=== PATIENT | male | born 1945 | race Caucasian/White ===

== ENCOUNTER 2017-09-01 10:57 | Emergency (ER) | payer MEDICARE ==
[2017-09-01] MEDS ORDERED: Doxycycline 100 MG Cap PO ONE (11:24)
--- NOTE | 2017-09-01 11:30 | EDM.PDOC ---
ED HPI GENERAL MEDICAL PROBLEM - General Chief Complaint: Skin Complaint Stated Complaint: SKIN COMPLAINT/SORES ON ARMS AND LEGS Time Seen by Provider: 09/01/17 11:15 Source of Information: Reports: Patient History Limitations: Reports: No Limitations - History of Present Illness INITIAL COMMENTS - FREE TEXT/NARRATIVE: Patient 71-year-old male presents ED complaining of multiple sores to his legs and arms. The sores of been present for the past few months and has been evaluated by airborne weapons technical manager with prescription for dicloxacillin provided. 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 States the dicloxacillin almost completely resolve the sores to his legs. States he is also placed on prednisone. Was seen by the airborne weapons technical manager 20 August with no additional antibiotic prescribed. Plant Maintenance Manager stated the patient should improve with the prednisone but have not. Patient states he does not have a history of MRSA. As a recently the lesions have come back and have started draining clear liquids. Minimal pain present. Lesions to the arms are well healed in comparison to the legs. Patient has attempted to get back in with the airborne weapons technical manager this week but they are out until next week. Patient denies any fever, chills, nausea/vomiting, or any additional complaints. Treatments CORPORATE SAFETY COORDINATOR: Reports: Acetaminophen Bilateral Leg Pain Score (Numeric/FACES): 4 - Related Data Allergies Allergy/AdvReac Type Severity Reaction Status Date / Time No Known Allergies Allergy Verified 09/01/17 11:08 Home Meds: Home Meds Doxycycline [Vibramycin] 100 mg PO Q12HR #30 cap 09/01/17 [Rx] Past Medical History Cardiovascular History: Reports: Cardiomyopathy, Heart Failure Social & Family History - Family History Family Medical History: Noncontributory - Tobacco Use Smoking Status *Q: Never Smoker - Caffeine Use Caffeine Use: Reports: Coffee - Recreational Drug Use Recreational Drug Use: No ED ROS GENERAL - Review of Systems Review Of Systems: ROS reveals no pertinent complaints other than HPI. ED EXAM, SKIN/RASH Exam: See Below Exam Limited By: No Limitations General Appearance: Alert, WD/WN, No Apparent Distress Ears: Hearing Grossly Normal Nose: Normal Inspection Throat/Mouth: Normal Voice, No Airway Compromise Neck: Normal Inspection, Supple Respiratory/Chest: No Respiratory Distress, No Accessory Muscle Use Cardiovascular: Normal Peripheral Pulses, Regular Rate, Rhythm Peripheral Pulses: 2+: Radial (L), Radial (R) Extremities: Pedal Edema (trace to 1+) Neurological: Alert, Oriented, CN II-XII Intact, Normal Cognition, No Motor/ Sensory Deficits Psychiatric: Normal Affect, Normal Mood Skin: Warm, Dry Location, Skin: Lower Extremity, Right, Lower Extremity, Left Characteristics: Maculopapular, Patchy, Erythematous, Other (crusted) Associated features: Tenderness (mild), Crusting, Weeping, Rough. No: Warmth, Swelling, Induration Course - Vital Signs Last Recorded V/S: Last Vital Signs Temp 97.3 F 09/01/17 11:03 Pulse 90 09/01/17 11:03 Resp 18 09/01/17 11:03 BP 162/89 H 09/01/17 11:03 Pulse Ox 97 09/01/17 11:03 - Orders/Labs/Meds Labs: Laboratory Tests 09/01/17 Range/Units 11:35 MRSA (PCR) Negative Meds: Medications Discontinued Medications Generic Name Dose Route Start Last Admin Trade Name Elise PRN Reason Stop Dose Admin Doxycycline Hyclate 200 mg 09/01/17 11:24 09/01/17 11:35 Vibramycin PO 09/01/17 11:25 200 mg ONETIME ONE Administration - Re-Assessments/Exams Free Text/Narrative Re-Assessment/Exam: MRSA culture obtained. Patient has reported history of staph/strep infection. He was previously on dicloxolloin with almost complete eradication of sores. States rash over the last couple weeks has progressively gotten worse. Wounds are draining. No diagnosis of MRSA. Will start the patient on doxycycline 200 mg by mouth here in the ED. Perception provided on discharge. Patient was instructed to follow- up with his PCP this coming Thursday to ensure symptoms are improving. He'll make appointment with derm to be evaluate in the next 1-2 wks. Departure - Departure Time of Disposition: 11:26 Disposition: Home, Self-Care 01 Condition: Good Clinical Impression: Staphylococcal infection of skin, Streptococcal infection - Discharge Information Prescriptions: Doxycycline [Vibramycin] 100 mg PO Q12HR #30 cap Instructions: Rash Referrals: Alhaji Anderson Jr, MD [Primary Care Provider] - Forms: ED Department Discharge Additional Instructions: Take the doxycline as described. If the wounds are draining please keep covered. Wash hands frequently. Follow-up with PCP this coming Thursday to ensure wounds are started result. Make an appointment to see your airborne weapons technical manager and 1- 2 weeks for reevaluation. I have also provided refills for the doxycycline if wounds do not resolve with initial course.
== END 2017-09-01 12:00 | disposition home or self-care (01) ==
LOC: JD.ED 10:57
DX: L08.89 Other specified local infections of the skin and subcutaneous tissue (principal); B95.8 Unspecified staphylococcus as the cause of diseases classified elsewhere; B95.5 Unspecified streptococcus as the cause of diseases classified elsewhere; I50.9 Heart failure, unspecified
CPT/HCPCS: 87641; 99283; A9270

== ENCOUNTER 2017-09-25 06:34 | Day surgery (SDC) | payer MEDICARE, OTHER ==
[2017-09-25] MEDS ORDERED: Lidocaine 1%/Sod Bicarbonate in NS 8.4% 1 ML Syringe IV PRN (07:00)
[2017-09-25] MEDS ORDERED: Lactated Ringers 1,000 ML IV SCH (07:00)
[2017-09-25] MEDS ORDERED: Sodium Chloride 0.9% 10 ML Syringe FLUSH PRN (07:00)
--- NOTE | 2017-09-25 07:17 | PCM.PREANE ---
Preanesthetic Assessment - Anesthesia/Transfusion/Family Hx Anesthesia History: Prior Anesthesia Without Reaction Family History of Anesthesia Reaction: No Transfusion History: No Prior Transfusion(s) Intubation History: Unknown - Review of Systems General: No Symptoms, Fatigue Pulmonary: No Symptoms (Quit smoking in 1984/ ETOH: 1-3 beers/week, 1-2 shots/ week) Cardiovascular: No Symptoms (Chronic systolic CHF/ HTN, ), Edema (Leg swelling history of) Gastrointestinal: No Symptoms (history of bloody stools) Neurological: No Symptoms Other: Reports: None (Skin disorder called Sweet's Syndrome and 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 for this.), Easy Bruising, Depression - Physical Assessment NPO Status Date: 09/24/17 NPO Status Time: 18:00 Pulse: 81 O2 Sat by Pulse Oximetry: 97 Respiratory Rate: 16 Blood Pressure: 160/87 Temperature: 36.8 C Height: 1.78 m Weight: 112.491 kg ASA Class: 3 Mental Status: Alert & Oriented x3 Airway Class: Mallampati = 3 Dentition: Reports: Normal Dentition, Broken Tooth/Teeth, Missing Tooth/Teeth, Caries Thyro-Mental Finger Breadths: 3 Mouth Opening Finger Breadths: 3 ROM/Head Extension: Full Lungs: Clear to Auscultation, Normal Respiratory Effort, Decreased Breath Sounds Cardiovascular: Regular Rate, Regular Rhythm, No Murmurs - Imaging/EKG Impressions: Echocardiogram: Dilated LV with EF= 45% EKG: Sinus rhythm rate=75, Nonspecific IVCD with LAD, Inferior infarct, old, 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 - Allergies Allergies/Adverse Reactions: Allergies Allergy/AdvReac Type Severity Reaction Status Date / Time No Known Allergies Allergy Verified 09/01/17 11:08 - Anesthesia Plan Pre-Op Medication Ordered: Beta Tal Beta Tal: Carvedilol Med Last Dose Date: 09/24/17 Med Last Dose Time: 08:00 - Acknowledgements Anesthesia Type Planned: MAC Pt an Appropriate Candidate for the Planned Anesthesia: Yes Alternatives and Risks of Anesthesia Discussed w Pt/Guardian: Yes Pt/Guardian Understands and Agrees with Anesthesia Plan: Yes PreAnesthesia Questionnaire Cardiovascular History: Reports: Cardiomyopathy, Heart Failure, High Cholesterol , Hypertension Respiratory History: Reports: None Gastrointestinal History: Reports: Hemorrhoids Genitourinary History: Reports: None BILINGUAL NANNY History: Reports: None Musculoskeletal History: Reports: None Neurological History: Reports: None Psychiatric History: Reports: None Endocrine/Metabolic History: Reports: Obesity/BMI 30+ Hematologic History: Reports: None Immunologic History: Reports: None Oncologic (Cancer) History: Reports: None Dermatologic History: Reports: Other (See Below) Other Dermatologic History: sweet syndrome - Past Surgical History Head Surgeries/Procedures: Reports: None HEENT Surgical History: Reports: Tonsillectomy Cardiovascular Surgical History: Reports: None Respiratory Surgical History: Reports: None GI Surgical History: Reports: Appendectomy, Other (See Below) Other GI Surgeries/Procedures: hemorrhoidectomy Female Surgical History: Reports: None Male Surgical History: Reports: None Endocrine Surgical History: Reports: None Neurological Surgical History: Reports: None Musculoskeletal Surgical History: Reports: None Oncologic Surgical History: Reports: None Dermatological Surgical History: Reports: None - SUBSTANCE USE Smoking Status *Q: Former Smoker Recreational Drug Use History: No - HOME MEDS Home Medications: Home Meds Aspirin [Halfprin] 81 mg PO DAILY 09/23/17 [History] Benazepril HCl [Lotensin] 20 mg PO DAILY 09/23/17 [History] Carvedilol [Carvedilol] 3.125 mg PO DAILY 09/23/17 [History] aMILoride HCl [Amiloride HCl] 5 mg PO DAILY 09/23/17 [History] amLODIPine [Norvasc] 5 mg PO DAILY 09/23/17 [History] - CURRENT (IN HOUSE) MEDS Current Meds: Current Medications Lactated Ringer's (Ringers, Lactated) 1,000 mls @ 125 mls/hr IV ASDIRECTED TANI Stop: 09/25/17 23:00 Lidocaine/Sodium Bicarbonate (Buffered Lidocaine 1% In Ns 8.4%) 0.25 ml IV ONETIME PRN PRN Reason: Prior to IV Start Stop: 09/25/17 18:00 Sodium Chloride (Saline Flush) 10 ml FLUSH ASDIRECTED PRN PRN Reason: Keep Vein Open Stop: 09/25/17 18:00
[2017-09-25] MEDS ORDERED: fentaNYL 100 MCG/2 ML SDV ONE (07:58)
[2017-09-25] MEDS ORDERED: Propofol 200 MG/20 ML SDV ONE (07:58)
[2017-09-25] MEDS ORDERED: Lidocaine 1% 6 ML ONE (07:58)
--- NOTE | 2017-09-25 08:16 | PCM.OPNOTE ---
- General Post-Op/Procedure Note Date of Surgery/Procedure: 09/25/17 Operative Procedure(s): Colonoscopy with cold forceps biopsy Findings: 2 mm sigmoid polyp, internal hemorrhoids Pre Op Diagnosis: Positive Fecal Immunochemical Test Post-Op Diagnosis: 1. 2 mm sigmoid polyp 2. Internal hemorrhoids Anesthesia Technique: MAC Primary Surgeon: Rio Lyle Anesthesia Provider: Ale Davis EBL in mLs: 5 Complications: None Condition: Good Free Text/Narrative:: After patient gave verbal and written consent, he was placed on BP and pulse ox monitoring. He was given IV sedation which he tolerated well. The olympus colonoscope was inserted per rectum and advanced to the cecum without difficulty. The ileocecal valve and appendiceal orfice were imaged documenting cecal intubation. The prep was excellent, the views were excellent. The colonoscope was slowly withdrawn and mucosal surfaces were visualized. A small 2 mm distal sigmoid polyp was noted and removed by cold forceps. There was hemostasis. The colonoscope was retroflexed in the rectum and grade II internal hemorrhoids were noted. The scope was straightened and then removed.
--- NOTE | 2017-09-25 08:17 | PCM48HPAN ---
Post Anesthesia Note - EVALUATION WITHIN 48HRS OF ANESTHETIC Vital Signs in Normal Range: Yes Patient Participated in Evaluation: Yes Respiratory Function Stable: Yes Airway Patent: Yes Cardiovascular Function Stable: Yes Hydration Status Stable: Yes Pain Control Satisfactory: Yes Nausea and Vomiting Control Satisfactory: Yes Mental Status Recovered: Yes
== END 2017-09-25 09:20 | disposition home or self-care (01) ==
LOC: JD.SDS 06:34
PROVIDERS: ATTEND Family Medicine
DX: K63.5 Polyp of colon (principal); K64.8 Other hemorrhoids; I10 Essential (primary) hypertension; E78.5 Hyperlipidemia, unspecified; E66.9 Obesity, unspecified; Z79.82 Long term (current) use of aspirin; Z79.899 Other long term (current) drug therapy; Z90.49 Acquired absence of other specified parts of digestive tract; Z98.890 Other specified postprocedural states; Z87.891 Personal history of nicotine dependence; Z68.30 Body mass index [BMI] 30.0-30.9, adult
CPT/HCPCS: 45380; J3010; J7120; 00810; 88305; J2704

== ENCOUNTER 2018-04-05 12:28 | Inpatient (IN) | payer MEDICARE, MEDICAID ==
--- NOTE | 2018-04-05 12:54 | EDM.PDOC ---
ED HPI GENERAL MEDICAL PROBLEM - General Chief Complaint: Cardiovascular Problem Stated Complaint: SOB Time Seen by Provider: 04/05/18 12:53 - History of Present Illness INITIAL COMMENTS - FREE TEXT/NARRATIVE: 72-year-old male presents emergency room with shortness of breath. Shortness of breath is been getting worse over the last 5-6 days. The patient saw his white sugar supervisor earlier this week restarted his Coreg the patient took it for a few days started on but discontinued it on Thursday because he thought it was making the shortness of breath worse. The patient does not have associated chest pain with this however the last couple nights she's been sleeping sitting up because he cannot lay back. Patient has significant lower extremity edema. He denies much of a cough. - Related Data Allergies Allergy/AdvReac Type Severity Reaction Status Date / Time No Known Allergies Allergy Verified 04/05/18 12:34 Home Meds: Home Meds Aspirin [Halfprin] 81 mg PO DAILY 09/23/17 [History] Benazepril HCl [Lotensin] 20 mg PO DAILY 09/23/17 [History] Bumetanide [Bumex] 1 mg PO BID 04/05/18 [History] Spironolactone [Aldactone] 25 mg PO DAILY 04/05/18 [History] Past Medical History Cardiovascular History: Reports: Cardiomyopathy, Heart Failure, High Cholesterol , Hypertension Respiratory History: Reports: None Gastrointestinal History: Reports: Hemorrhoids Genitourinary History: Reports: None VMWARE ADMINISTRATOR History: Reports: None Musculoskeletal History: Reports: None Neurological History: Reports: None Psychiatric History: Reports: None Endocrine/Metabolic History: Reports: Obesity/BMI 30+ Hematologic History: Reports: None Immunologic History: Reports: None Oncologic (Cancer) History: Reports: None Dermatologic History: Reports: Other (See Below) Other Dermatologic History: sweet syndrome - Past Surgical History Head Surgeries/Procedures: Reports: None HEENT Surgical History: Reports: Tonsillectomy Cardiovascular Surgical History: Reports: None Respiratory Surgical History: Reports: None GI Surgical History: Reports: Appendectomy, Other (See Below) Other GI Surgeries/Procedures: hemorrhoidectomy Female Surgical History: Reports: None Male Surgical History: Reports: None Endocrine Surgical History: Reports: None Neurological Surgical History: Reports: None Musculoskeletal Surgical History: Reports: None Oncologic Surgical History: Reports: None Dermatological Surgical History: Reports: None Social & Family History - Family History Family Medical History: Noncontributory - Tobacco Use Smoking Status *Q: Former Smoker Years of Tobacco use: 3 Packs/Tins Daily: 0.2 Used Tobacco, but Quit: Yes Month/Year Tobacco Last Used: 50 years ago - Caffeine Use Caffeine Use: Reports: Coffee, Tea - Recreational Drug Use Recreational Drug Use: No ED ROS GENERAL - Review of Systems Review Of Systems: See Below Constitutional: Denies: Fever, Chills HEENT: Reports: No Symptoms Respiratory: Reports: Shortness of Breath, Cough (Mild) Cardiovascular: Reports: Dyspnea on Exertion, Edema, Orthopnea. Denies: Chest Pain Endocrine: Reports: No Symptoms GI/Abdominal: Reports: No Symptoms. Denies: Abdominal Pain : Reports: No Symptoms Musculoskeletal: Reports: No Symptoms Skin: Reports: No Symptoms Neurological: Reports: No Symptoms ED EXAM, GENERAL - Physical Exam Exam: See Below General Appearance: Alert, Mild Distress (He has labored respirations but is doing well with it.) Eye Exam: Bilateral Eye: Normal Inspection Ears: Normal External Exam, Normal Canal, Hearing Grossly Normal, Normal TMs Nose: Normal Inspection, Normal Mucosa Throat/Mouth: Normal Inspection, Normal Lips, Normal Oropharynx, Normal Voice, Other Head: Atraumatic, Normocephalic Neck: Normal Inspection, Supple, Other (Patient has a thick neck). No: Lymphadenopathy (L), Lymphadenopathy (R) Respiratory/Chest: Other (Patient is moderate tachypnea he was saturating in the low 80s when he came in this is fixed with supplemental oxygen) Cardiovascular: Regular Rate, Rhythm, Tachycardia (130s to 140s sinus), Other ( Patient has marked lower extremity edema) GI/Abdominal: Normal Bowel Sounds, Soft, Non-Tender, Other (He has some distention) Extremities: Pedal Edema (Significant pedal edema and lower extremity edema bilaterally pitting in nature) Neurological: Alert, Oriented, Normal Cognition EKG INTERPRETATION Rhythm: Other (Sinus tachycardia with a single PVC) Rate (Beats/Min): 137 [place]: LAD-Left [place] Deviation P-Wave: Present QRS: Wide (Her ventricular conduction delay suspected old anterior septal WI) ST-T: Other (Nonspecific nondiagnostic changes) QT: Normal Comparison: NA - No Prior EKG Course - Vital Signs Last Recorded V/S: Last Vital Signs Temp 36.6 C 05/21/18 15:24 Pulse 134 H 04/05/18 15:24 Resp 26 H 04/05/18 15:24 BP 141/82 H 04/05/18 15:24 Pulse Ox 94 L 04/05/18 15:24 - Orders/Labs/Meds Orders: Active Orders 24 hr Category Date Time Status CPAP Adult [RT BiPAP/CPAP] [RC] ASDIRECTED Care 04/05/18 14:11 Active EKG Documentation Completion [RC] STAT Care 04/05/18 13:03 Active Chest 1V Frontal [CR] Stat Exams 04/05/18 13:03 Taken Labs: Laboratory Tests 04/05/18 04/05/18 04/05/18 Range/Units 12:35 12:39 12:39 WBC 34.01 H (4.23-9.07) K/mm3 RBC 5.65 (4.63-6.08) M/mm3 Hgb 15.3 (13.7-17.5) gm/L Hct 47.8 (40.1-51.0) % MCV 84.6 (79.0-92.2) fl MCH 27.1 (25.7-32.2) pg MCHC 32.0 L (32.2-35.5) g/dl RDW Std Deviation 48.2 H (35.1-43.9) fL Plt Count 224 (163-337) K/mm3 MPV 13.4 H (9.4-12.3) fl Neutrophils % (Manual) 91 H (40-60) % Band Neutrophils % 2 (0-10) % Lymphocytes % (Manual) 3 L (20-40) % Atypical Lymphs % 0 % Monocytes % (Manual) 4 (2-10) % Eosinophils % (Manual) 0 L (0.8-7.0) % Basophils % (Manual) 0 L (0.2-1.2) Differential Comment See note Toxic Granulation 1+ slight Platelet Estimate Adequate RBC Morph Comment Normal PT 12.0 (9.5-12.1) SECONDS INR 1.10 APTT 26 (24-31) SECONDS Puncture Site ABG pH (7.35-7.45) ABG pCO2 (35.0-45.0) mmHg ABG pO2 (80.0-100.0) mmHg ABG HCO3 (22.0-26.0) meq/L ABG O2 Saturation (96.0-97.0) % ABG Base Excess (-2-2.0) Lionel Test A-a Gradient mmHg O2 Delivery Device FiO2 (21.00-100.00) % PEEP cmH20 Pressure Support cmH2O Sodium (136-145) mEq/L Potassium (3.5-5.1) mEq/L Chloride (98-107) mEq/L Carbon Dioxide (21-32) mEq/L Anion Gap (5-15) BUN (7-18) mg/dL Creatinine (0.7-1.3) mg/dL Est Cr Clr Drug Dosing mL/min Estimated GFR (MDRD) (>60) mL/min BUN/Creatinine Ratio (14-18) Glucose (83-115) mg/dL Calcium (8.5-10.1) mg/dL Total Bilirubin (0.2-1.0) mg/dL AST (15-37) U/L ALT (16-63) U/L Alkaline Phosphatase (46-116) U/L Troponin I (0.00-0.056) ng/mL NT-Pro-B Natriuret Pep 8209 H (0-125) pg/mL Total Protein (6.4-8.2) g/dl Albumin (3.4-5.0) g/dl Globulin gm/dL Albumin/Globulin Ratio (1-2) 04/05/18 04/05/18 Range/Units 12:39 15:15 WBC (4.23-9.07) K/mm3 RBC (4.63-6.08) M/mm3 Hgb (13.7-17.5) gm/L Hct (40.1-51.0) % MCV (79.0-92.2) fl MCH (25.7-32.2) pg MCHC (32.2-35.5) g/dl RDW Std Deviation (35.1-43.9) fL Plt Count (163-337) K/mm3 MPV (9.4-12.3) fl Neutrophils % (Manual) (40-60) % Band Neutrophils % (0-10) % Lymphocytes % (Manual) (20-40) % Atypical Lymphs % % Monocytes % (Manual) (2-10) % Eosinophils % (Manual) (0.8-7.0) % Basophils % (Manual) (0.2-1.2) Differential Comment Toxic Granulation Platelet Estimate RBC Morph Comment PT (9.5-12.1) SECONDS INR APTT (24-31) SECONDS Puncture Site Rt radial ABG pH 7.49 H (7.35-7.45) ABG pCO2 34.9 L (35.0-45.0) mmHg ABG pO2 66.0 L (80.0-100.0) mmHg ABG HCO3 26.0 (22.0-26.0) meq/L ABG O2 Saturation 93.5 L (96.0-97.0) % ABG Base Excess 3.3 H (-2-2.0) Lionel Test Positive A-a Gradient 51 mmHg O2 Delivery Device Bipap FiO2 25.00 (21.00-100.00) % PEEP 5.0 cmH20 Pressure Support 10.0 cmH2O Sodium 142 (136-145) mEq/L Potassium 3.5 (3.5-5.1) mEq/L Chloride 103 (98-107) mEq/L Carbon Dioxide 26 (21-32) mEq/L Anion Gap 16.5 H (5-15) BUN 28 H (7-18) mg/dL Creatinine 1.7 H (0.7-1.3) mg/dL Est Cr Clr Drug Dosing 39.96 mL/min Estimated GFR (MDRD) 40 (>60) mL/min BUN/Creatinine Ratio 16.5 (14-18) Glucose 154 H (83-115) mg/dL Calcium 9.3 (8.5-10.1) mg/dL Total Bilirubin 2.3 H (0.2-1.0) mg/dL AST 23 (15-37) U/L ALT 37 (16-63) U/L Alkaline Phosphatase 51 (46-116) U/L Troponin I < 0.017 (0.00-0.056) ng/mL NT-Pro-B Natriuret Pep (0-125) pg/mL Total Protein 7.3 (6.4-8.2) g/dl Albumin 3.8 (3.4-5.0) g/dl Globulin 3.5 gm/dL Albumin/Globulin Ratio 1.1 (1-2) Meds: Medications Discontinued Medications Generic Name Dose Route Start Last Admin Trade Name Freq PRN Reason Stop Dose Admin Furosemide 60 mg 04/05/18 13:04 04/05/18 13:20 Lasix IVPUSH 04/05/18 13:05 60 mg NOW ONE Administration Potassium Chloride 40 meq 04/05/18 14:10 04/05/18 15:20 Klor-Con M20 PO 04/05/18 14:11 40 meq ONETIME ONE Administration - Re-Assessments/Exams Free Text/Narrative Re-Assessment/Exam: 04/05/18 15:39 Test x-ray shows marked cardiomegaly with significant pulmonary congestion in the lower lung esquivel and in the middle lobes on the right lingula on the left he's got a small right pleural effusion. Patient was started on Lasix after labs reviewed was given 40 mEq of potassium chloride orally. It was difficult to monitor, here now but he had because he insisted on going to the restroom by himself. However he gets up to After this that we insisted that he use the urinal in the room. The patient was started on BiPAP and his pulse came down as did his respiratory rate he is still tachycardic and to But doing better the patient was actually able to sleep. His BNP came back over 8000. Case discussed with our hospitalist Dr. Zheng who agrees on admission for the patient. Departure - Departure Time of Disposition: 15:26 Disposition: Admitted As Inpatient 65 Clinical Impression: Congestive heart failure Referrals: Gerard Page MD [Primary Care Provider] - Forms: ED Department Discharge - My Orders Last 24 Hours: My Active Orders 04/05/18 13:03 EKG Documentation Completion [RC] STAT Chest 1V Frontal [CR] Stat 04/05/18 14:11 CPAP Adult [RT BiPAP/CPAP] [RC] ASDIRECTED - Assessment/Plan Last 24 Hours: My Active Orders 04/05/18 13:03 EKG Documentation Completion [RC] STAT Chest 1V Frontal [CR] Stat 04/05/18 14:11 CPAP Adult [RT BiPAP/CPAP] [RC] ASDIRECTED
[2018-04-05] MEDS ORDERED: Furosemide 40 MG/4 ML VIAL IVPUSH ONE (13:04)
[2018-04-05] MEDS ORDERED: Potassium Chloride 20 MEQ Tab.ER PO ONE (14:10)
--- NOTE | 2018-04-05 16:18 | CR ---
Chest: Frontal view of the chest was obtained. Comparison: No prior study. Heart is enlarged. Pulmonary vessels are congested. Atelectasis or scarring is noted within the left upper chest. Impression: 1. CHF and other incidental finding. Diagnostic code #3
[2018-04-05] MEDS ORDERED: Promethazine 25 MG Tab PO PRN (17:09)
[2018-04-05] MEDS ORDERED: Albuterol/Ipratropium 3.0-0.5 MG/3 ML Neb Soln NEB PRN (17:09)
[2018-04-05] MEDS ORDERED: Docusate Sodium 100 MG Cap PO PRN (17:09)
[2018-04-05] MEDS ORDERED: Albuterol 0.083% 2.5 MG/3 ML Neb Soln NEB PRN (17:09)
[2018-04-05] MEDS ORDERED: Promethazine 6.25 MG in Sodium Chloride 0.9% 50 ML IV PRN (17:09)
[2018-04-05] MEDS ORDERED: Acetaminophen/HYDROcodone 325-5 MG Tab PO PRN (17:09)
[2018-04-05] MEDS ORDERED: Bisacodyl 5 MG Tab PO PRN (17:09)
[2018-04-05] MEDS ORDERED: Morphine 2 MG/ML Syringe IVPUSH PRN (17:09)
[2018-04-05] MEDS ORDERED: Polyethylene Glycol 3350 Powder 17 GM Packet PO PRN (17:09)
[2018-04-05] MEDS ORDERED: Magnesium Hydroxide 400 MG/5 ML Susp 30 ML Cup PO PRN (17:09)
--- NOTE | 2018-04-05 17:38 | PCM.HP ---
H&P History of Present Illness - General Date of Service: 04/05/18 Source of Information: Patient, Provider History Limitations: Reports: Respiratory Distress (difficult to talk with BiPAP ) - History of Present Illness Initial Comments - Free Text/Narative: This is a 72 yo male with past medical hx/o CHF, HTN, HLD who comes in for CHF exacerbation. No current pain. He reports no fever, chills, headache, nausea, vomiting, diarrhea, chest pain, or GI/ complaints. His symptoms improved after receiving BiPAP and Lasix in the ED. His initial workup in the ED showed a CBC remarkable for WBC of 34.01, MCHC of 32, RDW 48.2 , MPV 13.4, neutrophils of 91%, Bandemia 2%, and lymphocyte of 3%, Toxic Granulation 1+. His coagulation study shows PT of 12, INR of 1.1, APTT of 26. His chemistry is remarkable for Anion Gap 16.5, BUN 28, Cr 1.7, eGFR 40, GLucose 154, Bilirubin 2.3, ProBNP of 8209. ABG showed Respiratory Alkalosis with pH 7.42, pCO2 34.9, pO2 66. Chest X-ray shows significant pulmonary congestion. He is subsequently admitted to the ICU. He is DNR/DNI/Comfort measures. His PCP is Dr. Gerard Page. - Related Data Allergies/Adverse Reactions: Allergies Allergy/AdvReac Type Severity Reaction Status Date / Time No Known Allergies Allergy Verified 04/05/18 12:34 Home Medications: Home Meds Aspirin [Halfprin] 81 mg PO DAILY 09/23/17 [History] Benazepril HCl [Lotensin] 20 mg PO DAILY 09/23/17 [History] Bumetanide [Bumex] 1 mg PO BID 04/05/18 [History] Spironolactone [Aldactone] 25 mg PO DAILY 04/05/18 [History] Past Medical History Cardiovascular History: Reports: Cardiomyopathy, Heart Failure, High Cholesterol , Hypertension Respiratory History: Reports: None Gastrointestinal History: Reports: Hemorrhoids Genitourinary History: Reports: None [employer] History: Reports: None Musculoskeletal History: Reports: None Neurological History: Reports: None Psychiatric History: Reports: None Endocrine/Metabolic History: Reports: Obesity/BMI 30+ Hematologic History: Reports: None Immunologic History: Reports: None Oncologic (Cancer) History: Reports: None Dermatologic History: Reports: Other (See Below) Other Dermatologic History: sweet syndrome - Past Surgical History Head Surgeries/Procedures: Reports: None HEENT Surgical History: Reports: Tonsillectomy Cardiovascular Surgical History: Reports: None Respiratory Surgical History: Reports: None GI Surgical History: Reports: Appendectomy, Other (See Below) Other GI Surgeries/Procedures: hemorrhoidectomy Female Surgical History: Reports: None Male Surgical History: Reports: None Endocrine Surgical History: Reports: None Neurological Surgical History: Reports: None Musculoskeletal Surgical History: Reports: None Oncologic Surgical History: Reports: None Dermatological Surgical History: Reports: None Social & Family History - Family History Family Medical History: Noncontributory - Tobacco Use Smoking Status *Q: Former Smoker Years of Tobacco use: 3 Packs/Tins Daily: 0.2 Used Tobacco, but Quit: Yes Month/Year Tobacco Last Used: 50 years ago - Caffeine Use Caffeine Use: Reports: Coffee, Tea - Recreational Drug Use Recreational Drug Use: No H&P Review of Systems - Review of Systems: Review Of Systems: See Below General: Reports: Fatigue. Denies: Fever, Chills HEENT: Reports: No Symptoms. Denies: Headaches Pulmonary: Reports: Shortness of Breath. Denies: Pleuritic Chest Pain, Cough, Sputum Cardiovascular: Reports: Dyspnea on Exertion, Orthopnea, Edema (bilateral). Denies: Chest Pain, Palpitations Gastrointestinal: Reports: Distension. Denies: Abdominal Pain, Constipation, Diarrhea, Nausea, Vomiting Genitourinary: Reports: No Symptoms. Denies: Dysuria, Frequency, Burning, Pain Musculoskeletal: Reports: Other (bilateral leg swelling/) Skin: Reports: Erythema, Wound, Lesions, Other (bilateral lower leg lesions "bursted open" with leg edema) Psychiatric: Reports: No Symptoms Neurological: Reports: No Symptoms Hematologic/Lymphatic: Reports: No Symptoms Immunologic: Reports: No Symptoms Exam - Exam Exam: See Below - Vital Signs Vital Signs: Last Vital Signs Temp 97.8 F 04/05/18 15:24 Pulse 134 H 04/05/18 15:24 Resp 26 H 04/05/18 15:24 BP 141/82 H 04/05/18 15:24 Pulse Ox 94 L 04/05/18 15:24 Weight: 270 lb - Exam Quality Assessment: Supplemental Oxygen (BiPAP) General: Alert, Oriented, Cooperative, Severe Distress HEENT: Conjunctiva Clear, EACs Clear, EOMI, Hearing Intact, Mucosa Moist & [place] , Nares Patent, Normal Nasal Septum, Posterior Pharynx Clear, TMs Clear, PERRLA Neck: Supple, Trachea Midline, 2 Lungs: Decreased Breath Sounds, Crackles, Rales. No: Normal Respiratory Effort Cardiovascular: Regular Rhythm, Tachycardia GI/Abdominal Exam: Normal Bowel Sounds, Soft, Non-Tender, Distended (Male) Exam: Deferred Rectal (Males) Exam: Deferred Back Exam: Normal Inspection, Full Range of Motion, NT Extremities: Normal Range of Motion, Non-Tender, Normal Capillary Refill, Pedal Edema (bilateral), Increased Warmth, Redness, Other (bilateral lower leg lesions , pustules, erythema, hot to touch) Peripheral Pulses: 1+: Posterior Tibial (L), Posterior Tibial (R), Dorsalis Pedis (L), Dorsalis Pedis (R) Skin: Warm, Dry, Intact, Rash (biltateral lower legs), Wound (bilateral lower legs) Neurological: Cranial Nerves Intact (grossly) Neuro Extensive - Mental Status: Alert, Oriented x3, Normal Mood/Affect, Normal Cognition Psychiatric: Alert, Normal Affect, Normal Mood - Patient Data Lab Results Last 24 hrs: Laboratory Results - last 24 hr 04/05/18 04/05/18 04/05/18 Range/Units 12:35 12:39 12:39 WBC 34.01 H (4.23-9.07) K/mm3 RBC 5.65 (4.63-6.08) M/mm3 Hgb 15.3 (13.7-17.5) gm/L Hct 47.8 (40.1-51.0) % MCV 84.6 (79.0-92.2) fl MCH 27.1 (25.7-32.2) pg MCHC 32.0 L (32.2-35.5) g/dl RDW Std Deviation 48.2 H (35.1-43.9) fL Plt Count 224 (163-337) K/mm3 MPV 13.4 H (9.4-12.3) fl Neutrophils % (Manual) 91 H (40-60) % Band Neutrophils % 2 (0-10) % Lymphocytes % (Manual) 3 L (20-40) % Atypical Lymphs % 0 % Monocytes % (Manual) 4 (2-10) % Eosinophils % (Manual) 0 L (0.8-7.0) % Basophils % (Manual) 0 L (0.2-1.2) Differential Comment See note Toxic Granulation 1+ slight Platelet Estimate Adequate RBC Morph Comment Normal PT 12.0 (9.5-12.1) SECONDS INR 1.10 APTT 26 (24-31) SECONDS Puncture Site ABG pH (7.35-7.45) ABG pCO2 (35.0-45.0) mmHg ABG pO2 (80.0-100.0) mmHg ABG HCO3 (22.0-26.0) meq/L ABG O2 Saturation (96.0-97.0) % ABG Base Excess (-2-2.0) Lionel Test A-a Gradient mmHg O2 Delivery Device FiO2 (21.00-100.00) % PEEP cmH20 Pressure Support cmH2O Sodium (136-145) mEq/L Potassium (3.5-5.1) mEq/L Chloride (98-107) mEq/L Carbon Dioxide (21-32) mEq/L Anion Gap (5-15) BUN (7-18) mg/dL Creatinine (0.7-1.3) mg/dL Est Cr Clr Drug Dosing mL/min Estimated GFR (MDRD) (>60) mL/min BUN/Creatinine Ratio (14-18) Glucose (83-115) mg/dL Calcium (8.5-10.1) mg/dL Total Bilirubin (0.2-1.0) mg/dL AST (15-37) U/L ALT (16-63) U/L Alkaline Phosphatase (46-116) U/L Troponin I (0.00-0.056) ng/mL NT-Pro-B Natriuret Pep 8209 H (0-125) pg/mL Total Protein (6.4-8.2) g/dl Albumin (3.4-5.0) g/dl Globulin gm/dL Albumin/Globulin Ratio (1-2) 04/05/18 04/05/18 Range/Units 12:39 15:15 WBC (4.23-9.07) K/mm3 RBC (4.63-6.08) M/mm3 Hgb (13.7-17.5) gm/L Hct (40.1-51.0) % MCV (79.0-92.2) fl MCH (25.7-32.2) pg MCHC (32.2-35.5) g/dl RDW Std Deviation (35.1-43.9) fL Plt Count (163-337) K/mm3 MPV (9.4-12.3) fl Neutrophils % (Manual) (40-60) % Band Neutrophils % (0-10) % Lymphocytes % (Manual) (20-40) % Atypical Lymphs % % Monocytes % (Manual) (2-10) % Eosinophils % (Manual) (0.8-7.0) % Basophils % (Manual) (0.2-1.2) Differential Comment Toxic Granulation Platelet Estimate RBC Morph Comment PT (9.5-12.1) SECONDS INR APTT (24-31) SECONDS Puncture Site Rt radial ABG pH 7.49 H (7.35-7.45) ABG pCO2 34.9 L (35.0-45.0) mmHg ABG pO2 66.0 L (80.0-100.0) mmHg ABG HCO3 26.0 (22.0-26.0) meq/L ABG O2 Saturation 93.5 L (96.0-97.0) % ABG Base Excess 3.3 H (-2-2.0) Lionel Test Positive A-a Gradient 51 mmHg O2 Delivery Device Bipap FiO2 25.00 (21.00-100.00) % PEEP 5.0 cmH20 Pressure Support 10.0 cmH2O Sodium 142 (136-145) mEq/L Potassium 3.5 (3.5-5.1) mEq/L Chloride 103 (98-107) mEq/L Carbon Dioxide 26 (21-32) mEq/L Anion Gap 16.5 H (5-15) BUN 28 H (7-18) mg/dL Creatinine 1.7 H (0.7-1.3) mg/dL Est Cr Clr Drug Dosing 39.96 mL/min Estimated GFR (MDRD) 40 (>60) mL/min BUN/Creatinine Ratio 16.5 (14-18) Glucose 154 H (83-115) mg/dL Calcium 9.3 (8.5-10.1) mg/dL Total Bilirubin 2.3 H (0.2-1.0) mg/dL AST 23 (15-37) U/L ALT 37 (16-63) U/L Alkaline Phosphatase 51 (46-116) U/L Troponin I < 0.017 (0.00-0.056) ng/mL NT-Pro-B Natriuret Pep (0-125) pg/mL Total Protein 7.3 (6.4-8.2) g/dl Albumin 3.8 (3.4-5.0) g/dl Globulin 3.5 gm/dL Albumin/Globulin Ratio 1.1 (1-2) Result Diagrams: 04/05/18 12:39 04/05/18 12:39 - Problem List (1) CHF exacerbation SNOMED Code(s): 94347248 ICD Code: I50.9 - HEART FAILURE, UNSPECIFIED Status: Acute Priority: High Current Visit: Yes Qualifiers: Heart failure type: unspecified Qualified Code(s): I50.9 - Heart failure, unspecified (2) Cellulitis SNOMED Code(s): 801923970 ICD Code: L03.90 - CELLULITIS, UNSPECIFIED Status: Acute Priority: High Current Visit: Yes Qualifiers: Site of cellulitis: extremity Site of cellulitis of extremity: lower extremity Laterality: unspecified laterality Qualified Code(s): L03.119 - Cellulitis of unspecified part of limb (3) Hypoxia SNOMED Code(s): 532093011 ICD Code: R09.02 - HYPOXEMIA Status: Acute Priority: High Current Visit : Yes (4) Obesity (BMI 30-39.9) SNOMED Code(s): 208675773, 706467624 ICD Code: E66.9 - OBESITY, UNSPECIFIED Status: Chronic Priority: Low Current Visit: Yes Problem List Initiated/Reviewed/Updated: Yes Orders Last 24hrs: Active Orders 24 hr Category Date Time Status Bedrest Bathroom Privileges [] ASDIRECTED Care 04/05/18 17:09 Ordered CPAP Adult [RT BiPAP/CPAP] [] ASDIRECTED Care 04/05/18 14:11 Active Cardiac Monitoring [RC] CONTINUOUS Care 04/05/18 17:09 Ordered EKG Documentation Completion [RC] STAT Care 04/05/18 13:03 Active Height and Weight [] DAILY Care 04/05/18 17:09 Ordered Intake and Output [] QSHIFT Care 04/05/18 17:09 Ordered May Shower [RC] ASDIRECTED Care 04/05/18 17:09 Ordered Oxygen Therapy [RC] PRN Care 04/05/18 17:09 Ordered Pulse Oximetry [RC] CONTINUOUS Care 04/05/18 17:10 Ordered RT Aerosol Therapy [RC] ASDIRECTED Care 04/05/18 17:16 Ordered Up ad Veronica [RC] ASDIRECTED Care 04/05/18 17:09 Ordered Up to Chair [RC] ASDIRECTED Care 04/05/18 17:09 Ordered VTE/DVT Education [RC] PER UNIT ROUTINE Care 04/05/18 17:09 Ordered Vital Signs [RC] Q4H Care 04/05/18 17:09 Ordered Consult to Case Management [CONS] Routine Cons 04/05/18 17:23 Ordered Consult to Sales Strategy Manager [CONS] Routine Cons 04/05/18 17:22 Ordered Consult to Respiratory Therapy [Respiratory Care Assess Cons 04/05/18 17:23 Ordered and Treatment] [CONS] Routine Consult to Spiritual Care [CONS] Routine Cons 04/05/18 17:23 Ordered OT Evaluation and Treatment [CONS] Routine Cons 04/05/18 17:23 Ordered PT Evaluation and Treatment [CONS] Routine Cons 04/05/18 17:23 Ordered 2 Gram Sodium Diet [DIET] Diet 04/06/18 Breakfast Ordered Heart Healthy Diet [DIET] Diet 04/06/18 Breakfast Ordered C-REACTIVE PROTEIN [CHEM] AM Lab 04/06/18 05:11 Ordered C-REACTIVE PROTEIN [CHEM] AM Lab 04/07/18 05:11 Ordered C-REACTIVE PROTEIN [CHEM] AM Lab 04/08/18 05:11 Ordered C-REACTIVE PROTEIN [CHEM] AM Lab 04/09/18 05:11 Ordered C-REACTIVE PROTEIN [CHEM] AM Lab 04/10/18 05:11 Ordered CBC WITH AUTO DIFF [HEME] AM Lab 04/06/18 05:11 Ordered COMPREHENSIVE METABOLIC PN,CMP [CHEM] AM Lab 04/06/18 05:11 Ordered COMPREHENSIVE METABOLIC PN,CMP [CHEM] AM Lab 04/07/18 05:11 Ordered COMPREHENSIVE METABOLIC PN,CMP [CHEM] AM Lab 04/08/18 05:11 Ordered COMPREHENSIVE METABOLIC PN,CMP [CHEM] AM Lab 04/09/18 05:11 Ordered COMPREHENSIVE METABOLIC PN,CMP [CHEM] AM Lab 04/10/18 05:11 Ordered MAGNESIUM [CHEM] AM Lab 04/06/18 05:11 Ordered MAGNESIUM [CHEM] AM Lab 04/07/18 05:11 Ordered MAGNESIUM [CHEM] AM Lab 04/08/18 05:11 Ordered MAGNESIUM [CHEM] AM Lab 04/09/18 05:11 Ordered MAGNESIUM [CHEM] AM Lab 04/10/18 05:11 Ordered PRO B-TYPE NATRIUR PEPT,BNPPRO [CHEM] DAILY Lab 04/05/18 17:30 Ordered PRO B-TYPE NATRIUR PEPT,BNPPRO [CHEM] DAILY Lab 04/06/18 17:30 Ordered PRO B-TYPE NATRIUR PEPT,BNPPRO [CHEM] DAILY Lab 04/07/18 17:30 Ordered PRO B-TYPE NATRIUR PEPT,BNPPRO [CHEM] DAILY Lab 04/08/18 17:30 Ordered PRO B-TYPE NATRIUR PEPT,BNPPRO [CHEM] DAILY Lab 04/09/18 17:30 Ordered Acetaminophen [Tylenol] Med 04/05/18 17:09 Ordered 650 mg PO Q4H PRN Acetaminophen/HYDROcodone [[place] 325-5 MG] Med 04/05/18 17:09 Ordered 1 tab PO Q4H PRN Albuterol [Proventil Neb Soln] Med 04/05/18 17:09 Ordered 2.5 mg NEB Q2H PRN Albuterol/Ipratropium [DuoNeb 3.0-0.5 MG/3 ML] Med 04/05/18 17:09 Ordered 3 ml NEB Q4H PRN Aspirin [Halfprin] Med 04/06/18 09:00 Ordered 81 mg PO DAILY Benazepril [Lotensin] Med 04/06/18 09:00 Ordered 20 mg PO DAILY Bisacodyl [Dulcolax] Med 04/05/18 17:09 Ordered 5 mg PO DAILY PRN Docusate Sodium [Colace] Med 04/05/18 17:09 Ordered 100 mg PO BID PRN Docusate Sodium/Sennosides [Senna Plus] Med 04/05/18 17:09 Ordered 1 tab PO BID PRN Enoxaparin [Lovenox] Med 04/06/18 09:00 Ordered 40 mg SUBCUT DAILY Magnesium Hydroxide [Milk of Magnesia] Med 04/05/18 17:09 Ordered 30 ml PO Q12H PRN Morphine Med 04/05/18 17:09 Ordered 2 mg IVPUSH Q2H PRN Pantoprazole [ProTONIX IV] Med 04/06/18 09:00 Ordered 40 mg IVPUSH DAILY Polyethylene Glycol 3350 [MiraLAX] Med 04/05/18 17:09 Ordered 17 gm PO DAILY PRN Promethazine [Phenergan] Med 04/05/18 17:09 Ordered 25 mg PO Q6H PRN Promethazine [Phenergan] 6.25 mg Med 04/05/18 17:09 Ordered Sodium Chloride 0.9% [Normal Saline] 50 ml IV Q6H Spironolactone [Aldactone] Med 04/06/18 09:00 Ordered 25 mg PO DAILY Temazepam [Restoril] Med 04/05/18 17:09 Ordered 7.5 mg PO BEDTIME PRN Medication Orders Acetaminophen (Tylenol) 650 mg PO Q4H PRN PRN Reason: Pain (Mild 1-3)/fever Hydrocodone Bitart/Acetaminophen ([place] 325-5 Mg) 1 tab PO Q4H PRN PRN Reason: Pain (moderate 4-6) Albuterol (Proventil Neb Soln) 2.5 mg NEB Q2H PRN PRN Reason: Shortness Of Breath/wheezing Albuterol/Ipratropium (Duoneb 3.0-0.5 Mg/3 Ml) 3 ml NEB Q4H PRN PRN Reason: Shortness Of Breath/wheezing Aspirin (Halfprin) 81 mg PO DAILY [facility] Benazepril HCl (Lotensin) 20 mg PO DAILY TANI Bisacodyl (Dulcolax) 5 mg PO DAILY PRN PRN Reason: Constipation Docusate Sodium (Colace) 100 mg PO BID PRN PRN Reason: Constipation Enoxaparin Sodium (Lovenox) 40 mg SUBCUT DAILY [facility] Promethazine HCl 6.25 mg/ (Sodium Chloride) 50.25 mls @ 100 mls/hr IV Q6H PRN PRN Reason: Nausea/Vomiting Magnesium Hydroxide (Milk Of Magnesia) 30 ml PO Q12H PRN PRN Reason: Constipation Morphine Sulfate (Morphine) 2 mg IVPUSH Q2H PRN PRN Reason: Pain (severe 7-10) Stop: 04/06/18 17:15 Pantoprazole Sodium (Protonix Iv) 40 mg IVPUSH DAILY TANI Polyethylene Glycol (Miralax) 17 gm PO DAILY PRN PRN Reason: Constipation Promethazine HCl (Phenergan) 25 mg PO Q6H PRN PRN Reason: Nausea/Vomiting Senna/Docusate Sodium (Senna Plus) 1 tab PO BID PRN PRN Reason: Constipation Spironolactone (Aldactone) 25 mg PO DAILY TANI Temazepam (Restoril) 7.5 mg PO BEDTIME PRN PRN Reason: Sleep Assessment/Plan Comment:: I/P: Acute: CHF exacerbation -Acute on Chronic -Risk factor: Stopped taking Coreg on Thursday -SOB, Dyspnea, Orthopnea, Pedal edema, BiPAP needed to maintain O2>92% -Respiratory Alkalosis in ED -BNP 8209 -CXR: pulmonary congestion -EKG: Sinus tachy with single PVC, Wide QRS (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 ) -Lasix 60 and KCl 40 given in ED -Continue IV Lasix -Titrate O2 as needed to maintain >92% -Low sodium diet, Fluid restriction -Monitor Acute Renal Failure -Most likely 2/2 above -eGFR 40 -BUN 28, Cr 1.7 -Monitor Abdominal Distension -Most likely 2/2 above -AST/ALT normal range, no h/o ETOH abuse -R/O ascites with abdominal CT--> Pt would like to wait until less SOB Cellulitis, bilateral lower extremities -Risk factor: h/o staph infection, lower extremity edema 2/2 CHF -Erythematous rashes with weeping pustules, bilateral -Hot to the touch on exam -Now has fever of 100.7 -Start IV Vanco 500mg -Check for MRSA, Culture wound -Sepsis work up -Monitor Chronic: HTN--> Continue at home meds, hydralazine PRN HLD Obesity Plan: Transfered to ICU today He remains stable and continues to improve clinically Other orders as indicated above Routine AM labs CM for discharge planning--> needs at home oxygen/BiPAP PT/OT/RT DVT Prophylaxis: Lovenox GI Prophylaxis: Protonix Ambulated as tolerated Code Status: DNR/DNI/Comfort measures; PCP: Dr. Gerard Page
[2018-04-05] MEDS ORDERED: hydrALAZINE 20 MG/ML SDV IVPUSH PRN (18:04)
[2018-04-05] MEDS ORDERED: Vancomycin 500 MG SDV IV SCH (18:45)
[2018-04-05] MEDS ORDERED: Furosemide 100 MG in Sodium Chloride 0.9% 90 ML IV SCH (19:00)
[2018-04-05] MEDS: Vancomycin 1500 MG in Sodium Chloride 0.9% 500 ML IV SCH ×3 (20:10)
[2018-04-05] MEDS: Metoprolol Tartrate 5 MG/5 ML SDV IVPUSH PRN (21:38)
[2018-04-06] MEDS: Temazepam 7.5 MG Cap PO PRN ×2 (03:30→20:22)
[2018-04-06] MEDS: Vancomycin 1500 MG in Sodium Chloride 0.9% 500 ML IV SCH ×6 (06:26→18:11)
[2018-04-06] MEDS: Aspirin 81 MG Tab.EC PO SCH (08:13)
[2018-04-06] MEDS: Enoxaparin 40 MG/0.4 ML Syringe SUBCUT SCH (08:14)
[2018-04-06] MEDS ORDERED: Furosemide 40 MG/4 ML VIAL IVPUSH SCH (09:00)
[2018-04-06] MEDS ORDERED: Spironolactone 25 MG Tab PO SCH (09:00)
[2018-04-06] MEDS ORDERED: Pantoprazole 40 MG Vial IVPUSH SCH (09:00)
[2018-04-06] MEDS ORDERED: Furosemide 100 MG in Sodium Chloride 0.9% 90 ML IV SCH (10:30)
--- NOTE | 2018-04-06 11:52 | PCM.PN ---
- General Info Date of Service: 04/06/18 Admission Dx/Problem (Free Text): CHF Subjective Update: In to see Alon today. He is sitting on the commode. Overall he is doing quite well and states he is feeling better. He has no complaints, except for continued dyspnea on exertion. His legs are looking better. He is no longer on BiPAP and is now on 2L nasal cannula, usually not on at home. He would like to keep his burciaga catheter in as he is having some urinary retention. We also talked about his abdominal distention, and he mentioned that it "isn't like weight gain, it feels weird". He would like to go ahead and get a CT of the abdomen. He has been sleeping well. Good appetite. Ambulating as tolerated. Pain is controlled. No Fever, chills, chest pain, nausea, vomiting, diarrhea. No concerns from nursing. Functional Status: Reports: Pain Controlled, Tolerating Diet, Ambulating, Urinating - Review of Systems General: Reports: Fatigue. Denies: Fever, Weakness, Chills HEENT: Reports: No Symptoms Pulmonary: Reports: Shortness of Breath (on exertion). Denies: Cough Cardiovascular: Reports: Dyspnea on Exertion, Orthopnea, Edema (bilateral). Denies: Chest Pain, Palpitations Gastrointestinal: Reports: Other (Distention). Denies: Abdominal Pain, Constipation, Diarrhea, Nausea, Vomiting Genitourinary: Reports: Retention. Denies: Dysuria, Frequency, Burning, Pain, Urgency Musculoskeletal: Reports: Other (bilateral leg swelling) Skin: Reports: Other (Erythema, Wound, Lesions, Other (bilateral lower leg lesions "bursted open" with leg edema)) Neurological: Reports: No Symptoms Psychiatric: Reports: No Symptoms - Patient Data Vitals - Most Recent: Last Vital Signs Temp 99.8 F 04/06/18 08:00 Pulse 105 H 04/06/18 08:00 Resp 28 H 04/06/18 08:00 BP 129/77 04/06/18 08:12 Pulse Ox 95 04/06/18 08:00 Weight - Most Recent: 268 lb 12.8 oz I&O - Last 24 Hours: Intake & Output 04/05/18 04/06/18 04/06/18 22:59 06:59 14:59 Intake Total 964 325 Output Total 275 250 100 Balance -275 714 225 Lab Results Last 24 Hours: Laboratory Results - last 24 hr 04/05/18 04/05/18 04/05/18 Range/Units 12:35 12:39 12:39 WBC 34.01 H (4.23-9.07) K/mm3 RBC 5.65 (4.63-6.08) M/mm3 Hgb 15.3 (13.7-17.5) gm/L Hct 47.8 (40.1-51.0) % MCV 84.6 (79.0-92.2) fl MCH 27.1 (25.7-32.2) pg MCHC 32.0 L (32.2-35.5) g/dl RDW Std Deviation 48.2 H (35.1-43.9) fL Plt Count 224 (163-337) K/mm3 MPV 13.4 H (9.4-12.3) fl Neut % (Auto) (34.0-67.9) % Lymph % (Auto) (21.8-53.1) % [place] % (Auto) (5.3-12.2) % Eos % (Auto) (0.8-7.0) Baso % (Auto) (0.1-1.2) % Neut # (Auto) (1.78-5.38) K/mm3 Lymph # (Auto) (1.32-3.57) K/mm3 [place] # (Auto) (0.30-0.82) K/mm3 Eos # (Auto) (0.04-0.54) K/mm3 Baso # (Auto) (0.01-0.08) K/mm3 Neutrophils % (Manual) 91 H (40-60) % Band Neutrophils % 2 (0-10) % Lymphocytes % (Manual) 3 L (20-40) % Atypical Lymphs % 0 % Monocytes % (Manual) 4 (2-10) % Eosinophils % (Manual) 0 L (0.8-7.0) % Basophils % (Manual) 0 L (0.2-1.2) Differential Comment See note Manual Slide Review Toxic Granulation 1+ slight Platelet Estimate Adequate RBC Morph Comment Normal PT 12.0 (9.5-12.1) SECONDS INR 1.10 APTT 26 (24-31) SECONDS Puncture Site ABG pH (7.35-7.45) ABG pCO2 (35.0-45.0) mmHg ABG pO2 (80.0-100.0) mmHg ABG HCO3 (22.0-26.0) meq/L ABG O2 Saturation (96.0-97.0) % ABG Base Excess (-2-2.0) Lionel Test A-a Gradient mmHg O2 Delivery Device FiO2 (21.00-100.00) % PEEP cmH20 Pressure Support cmH2O Sodium (136-145) mEq/L Potassium (3.5-5.1) mEq/L Chloride (98-107) mEq/L Carbon Dioxide (21-32) mEq/L Anion Gap (5-15) BUN (7-18) mg/dL Creatinine (0.7-1.3) mg/dL Est Cr Clr Drug Dosing mL/min Estimated GFR (MDRD) (>60) mL/min BUN/Creatinine Ratio (14-18) Glucose (83-115) mg/dL Lactic Acid (0.4-2.0) mmol/L Calcium (8.5-10.1) mg/dL Magnesium (1.8-2.4) mg/dl Total Bilirubin (0.2-1.0) mg/dL AST (15-37) U/L ALT (16-63) U/L Alkaline Phosphatase (46-116) U/L Troponin I (0.00-0.056) ng/mL C-Reactive Protein (<1.0) mg/dL NT-Pro-B Natriuret Pep 8209 H (0-125) pg/mL Total Protein (6.4-8.2) g/dl Albumin (3.4-5.0) g/dl Globulin gm/dL Albumin/Globulin Ratio (1-2) MRSA (PCR) 04/05/18 04/05/18 04/05/18 Range/Units 12:39 15:15 18:01 WBC (4.23-9.07) K/mm3 RBC (4.63-6.08) M/mm3 Hgb (13.7-17.5) gm/L Hct (40.1-51.0) % MCV (79.0-92.2) fl MCH (25.7-32.2) pg MCHC (32.2-35.5) g/dl RDW Std Deviation (35.1-43.9) fL Plt Count (163-337) K/mm3 MPV (9.4-12.3) fl Neut % (Auto) (34.0-67.9) % Lymph % (Auto) (21.8-53.1) % [place] % (Auto) (5.3-12.2) % Eos % (Auto) (0.8-7.0) Baso % (Auto) (0.1-1.2) % Neut # (Auto) (1.78-5.38) K/mm3 Lymph # (Auto) (1.32-3.57) K/mm3 [place] # (Auto) (0.30-0.82) K/mm3 Eos # (Auto) (0.04-0.54) K/mm3 Baso # (Auto) (0.01-0.08) K/mm3 Neutrophils % (Manual) (40-60) % Band Neutrophils % (0-10) % Lymphocytes % (Manual) (20-40) % Atypical Lymphs % % Monocytes % (Manual) (2-10) % Eosinophils % (Manual) (0.8-7.0) % Basophils % (Manual) (0.2-1.2) Differential Comment Manual Slide Review Toxic Granulation Platelet Estimate RBC Morph Comment PT (9.5-12.1) SECONDS INR APTT (24-31) SECONDS Puncture Site Rt radial ABG pH 7.49 H (7.35-7.45) ABG pCO2 34.9 L (35.0-45.0) mmHg ABG pO2 66.0 L (80.0-100.0) mmHg ABG HCO3 26.0 (22.0-26.0) meq/L ABG O2 Saturation 93.5 L (96.0-97.0) % ABG Base Excess 3.3 H (-2-2.0) Lionel Test Positive A-a Gradient 51 mmHg O2 Delivery Device Bipap FiO2 25.00 (21.00-100.00) % PEEP 5.0 cmH20 Pressure Support 10.0 cmH2O Sodium 142 (136-145) mEq/L Potassium 3.5 (3.5-5.1) mEq/L Chloride 103 (98-107) mEq/L Carbon Dioxide 26 (21-32) mEq/L Anion Gap 16.5 H (5-15) BUN 28 H (7-18) mg/dL Creatinine 1.7 H (0.7-1.3) mg/dL Est Cr Clr Drug Dosing 39.96 mL/min Estimated GFR (MDRD) 40 (>60) mL/min BUN/Creatinine Ratio 16.5 (14-18) Glucose 154 H (83-115) mg/dL Lactic Acid (0.4-2.0) mmol/L Calcium 9.3 (8.5-10.1) mg/dL Magnesium (1.8-2.4) mg/dl Total Bilirubin 2.3 H (0.2-1.0) mg/dL AST 23 (15-37) U/L ALT 37 (16-63) U/L Alkaline Phosphatase 51 (46-116) U/L Troponin I < 0.017 (0.00-0.056) ng/mL C-Reactive Protein (<1.0) mg/dL NT-Pro-B Natriuret Pep 36165 H (0-125) pg/mL Total Protein 7.3 (6.4-8.2) g/dl Albumin 3.8 (3.4-5.0) g/dl Globulin 3.5 gm/dL Albumin/Globulin Ratio 1.1 (1-2) MRSA (PCR) 04/05/18 04/06/18 04/06/18 Range/Units 18:48 00:05 05:37 WBC 31.55 H (4.23-9.07) K/mm3 RBC 5.02 (4.63-6.08) M/mm3 Hgb 13.5 L (13.7-17.5) gm/L Hct 42.3 (40.1-51.0) % MCV 84.3 (79.0-92.2) fl MCH 26.9 (25.7-32.2) pg MCHC 31.9 L (32.2-35.5) g/dl RDW Std Deviation 49.2 H (35.1-43.9) fL Plt Count 162 L (163-337) K/mm3 MPV 13.3 H (9.4-12.3) fl Neut % (Auto) 90.9 H (34.0-67.9) % Lymph % (Auto) 4.0 L (21.8-53.1) % [place] % (Auto) 4.7 L (5.3-12.2) % Eos % (Auto) 0 L (0.8-7.0) Baso % (Auto) 0.1 (0.1-1.2) % Neut # (Auto) 28.67 H (1.78-5.38) K/mm3 Lymph # (Auto) 1.26 L (1.32-3.57) K/mm3 [place] # (Auto) 1.49 H (0.30-0.82) K/mm3 Eos # (Auto) 0.00 L (0.04-0.54) K/mm3 Baso # (Auto) 0.04 (0.01-0.08) K/mm3 Neutrophils % (Manual) (40-60) % Band Neutrophils % (0-10) % Lymphocytes % (Manual) (20-40) % Atypical Lymphs % % Monocytes % (Manual) (2-10) % Eosinophils % (Manual) (0.8-7.0) % Basophils % (Manual) (0.2-1.2) Differential Comment Manual Slide Review Abnormal smear Toxic Granulation Platelet Estimate RBC Morph Comment PT (9.5-12.1) SECONDS INR APTT (24-31) SECONDS Puncture Site ABG pH (7.35-7.45) ABG pCO2 (35.0-45.0) mmHg ABG pO2 (80.0-100.0) mmHg ABG HCO3 (22.0-26.0) meq/L ABG O2 Saturation (96.0-97.0) % ABG Base Excess (-2-2.0) Lionel Test A-a Gradient mmHg O2 Delivery Device FiO2 (21.00-100.00) % PEEP cmH20 Pressure Support cmH2O Sodium (136-145) mEq/L Potassium (3.5-5.1) mEq/L Chloride (98-107) mEq/L Carbon Dioxide (21-32) mEq/L Anion Gap (5-15) BUN (7-18) mg/dL Creatinine (0.7-1.3) mg/dL Est Cr Clr Drug Dosing mL/min Estimated GFR (MDRD) (>60) mL/min BUN/Creatinine Ratio (14-18) Glucose (83-115) mg/dL Lactic Acid 2.5 H (0.4-2.0) mmol/L Calcium (8.5-10.1) mg/dL Magnesium (1.8-2.4) mg/dl Total Bilirubin (0.2-1.0) mg/dL AST (15-37) U/L ALT (16-63) U/L Alkaline Phosphatase (46-116) U/L Troponin I (0.00-0.056) ng/mL C-Reactive Protein (<1.0) mg/dL NT-Pro-B Natriuret Pep (0-125) pg/mL Total Protein (6.4-8.2) g/dl Albumin (3.4-5.0) g/dl Globulin gm/dL Albumin/Globulin Ratio (1-2) MRSA (PCR) Negative 04/06/18 04/06/18 04/06/18 Range/Units 05:37 05:37 10:33 WBC (4.23-9.07) K/mm3 RBC (4.63-6.08) M/mm3 Hgb (13.7-17.5) gm/L Hct (40.1-51.0) % MCV (79.0-92.2) fl MCH (25.7-32.2) pg MCHC (32.2-35.5) g/dl RDW Std Deviation (35.1-43.9) fL Plt Count (163-337) K/mm3 MPV (9.4-12.3) fl Neut % (Auto) (34.0-67.9) % Lymph % (Auto) (21.8-53.1) % [place] % (Auto) (5.3-12.2) % Eos % (Auto) (0.8-7.0) Baso % (Auto) (0.1-1.2) % Neut # (Auto) (1.78-5.38) K/mm3 Lymph # (Auto) (1.32-3.57) K/mm3 [place] # (Auto) (0.30-0.82) K/mm3 Eos # (Auto) (0.04-0.54) K/mm3 Baso # (Auto) (0.01-0.08) K/mm3 Neutrophils % (Manual) (40-60) % Band Neutrophils % (0-10) % Lymphocytes % (Manual) (20-40) % Atypical Lymphs % % Monocytes % (Manual) (2-10) % Eosinophils % (Manual) (0.8-7.0) % Basophils % (Manual) (0.2-1.2) Differential Comment Manual Slide Review Toxic Granulation Platelet Estimate RBC Morph Comment PT (9.5-12.1) SECONDS INR APTT (24-31) SECONDS Puncture Site ABG pH (7.35-7.45) ABG pCO2 (35.0-45.0) mmHg ABG pO2 (80.0-100.0) mmHg ABG HCO3 (22.0-26.0) meq/L ABG O2 Saturation (96.0-97.0) % ABG Base Excess (-2-2.0) Lionel Test A-a Gradient mmHg O2 Delivery Device FiO2 (21.00-100.00) % PEEP cmH20 Pressure Support cmH2O Sodium 139 (136-145) mEq/L Potassium 3.5 (3.5-5.1) mEq/L Chloride 102 (98-107) mEq/L Carbon Dioxide 27 (21-32) mEq/L Anion Gap 13.5 (5-15) BUN 35 H (7-18) mg/dL Creatinine 1.9 H (0.7-1.3) mg/dL Est Cr Clr Drug Dosing 35.75 mL/min Estimated GFR (MDRD) 35 (>60) mL/min BUN/Creatinine Ratio 18.4 H (14-18) Glucose 134 H (83-115) mg/dL Lactic Acid 1.6 (0.4-2.0) mmol/L Calcium 8.8 (8.5-10.1) mg/dL Magnesium 1.8 (1.8-2.4) mg/dl Total Bilirubin (0.2-1.0) mg/dL AST (15-37) U/L ALT (16-63) U/L Alkaline Phosphatase (46-116) U/L Troponin I (0.00-0.056) ng/mL C-Reactive Protein 16.6 H* (<1.0) mg/dL NT-Pro-B Natriuret Pep 69448 H (0-125) pg/mL Total Protein (6.4-8.2) g/dl Albumin (3.4-5.0) g/dl Globulin gm/dL Albumin/Globulin Ratio (1-2) MRSA (PCR) Stephon Results Last 24 Hours: Microbiology 04/05/18 18:43 Aerobic Blood Culture - Preliminary Blood - Venous Gram Positive Cocci In Chains Med Orders - Current: Current Medications Acetaminophen (Tylenol) 650 mg PO Q4H PRN PRN Reason: Pain (Mild 1-3)/fever Hydrocodone Bitart/Acetaminophen ([place] 325-5 Mg) 1 tab PO Q4H PRN PRN Reason: Pain (moderate 4-6) Albuterol (Proventil Neb Soln) 2.5 mg NEB Q2H PRN PRN Reason: Shortness Of Breath/wheezing Albuterol/Ipratropium (Duoneb 3.0-0.5 Mg/3 Ml) 3 ml NEB Q4H PRN PRN Reason: Shortness Of Breath/wheezing Aspirin (Halfprin) 81 mg PO DAILY [facility] Last Admin: 04/06/18 08:13 Dose: 81 mg Benazepril HCl (Lotensin) 20 mg PO DAILY [facility] Last Admin: 04/06/18 08:12 Dose: 20 mg Bisacodyl (Dulcolax) 5 mg PO DAILY PRN PRN Reason: Constipation Docusate Sodium (Colace) 100 mg PO BID PRN PRN Reason: Constipation Enoxaparin Sodium (Lovenox) 40 mg SUBCUT DAILY [facility] Last Admin: 04/06/18 08:14 Dose: 40 mg Hydralazine HCl (Apresoline) 10 mg IVPUSH Q4H PRN PRN Reason: Hypertension Last Admin: 04/06/18 06:35 Dose: 10 mg Promethazine HCl 6.25 mg/ (Sodium Chloride) 50.25 mls @ 100 mls/hr IV Q6H PRN PRN Reason: Nausea/Vomiting Vancomycin HCl 1 gm/Vancomycin HCl 500 mg/ Sodium Chloride 500 mls @ 333.025 mls/hr IV Q12H [facility] Last Admin: 04/06/18 06:26 Dose: 333.025 mls/hr Furosemide 100 mg/ Sodium (Chloride) 100 mls @ 2.5 mls/hr IV TITRATE [facility] Magnesium Hydroxide (Milk Of Magnesia) 30 ml PO Q12H PRN PRN Reason: Constipation Metoprolol Tartrate (Lopressor) 5 mg IVPUSH Q4H PRN PRN Reason: Tachycardia Last Admin: 04/05/18 21:38 Dose: 5 mg Morphine Sulfate (Morphine) 2 mg IVPUSH Q2H PRN PRN Reason: Pain (severe 7-10) Stop: 04/06/18 17:15 Pantoprazole Sodium (Protonix) 40 mg PO DAILY [facility] Polyethylene Glycol (Miralax) 17 gm PO DAILY PRN PRN Reason: Constipation Promethazine HCl (Phenergan) 25 mg PO Q6H PRN PRN Reason: Nausea/Vomiting Senna/Docusate Sodium (Senna Plus) 1 tab PO BID PRN PRN Reason: Constipation Spironolactone (Aldactone) 25 mg PO DAILY [facility] Last Admin: 04/06/18 08:12 Dose: 25 mg Temazepam (Restoril) 7.5 mg PO BEDTIME PRN PRN Reason: Sleep Last Admin: 04/06/18 03:30 Dose: 7.5 mg Vancomycin HCl (Pharmacy To Dose - Vancomycin) 0 dose .XX ASDIRECTED PRN PRN Reason: RX TO DOSE VANCOMYCIN Discontinued Medications Furosemide (Lasix) 60 mg IVPUSH NOW ONE Stop: 04/05/18 13:05 Last Admin: 04/05/18 13:20 Dose: 60 mg Furosemide (Lasix) 40 mg IVPUSH DAILY [facility] Furosemide 100 mg/ Sodium (Chloride) 100 mls @ 1.5 mls/hr IV TITRATE [facility]; Protocol Last Infusion: 04/06/18 10:26 Dose: 2.5 mls/hr Pantoprazole Sodium (Protonix Iv) 40 mg IVPUSH DAILY [facility] Last Admin: 04/06/18 08:14 Dose: 40 mg Potassium Chloride (Klor-Con M20) 40 meq PO ONETIME ONE Stop: 04/05/18 14:11 Last Admin: 04/05/18 15:20 Dose: 40 meq - Exam Quality Assessment: Supplemental Oxygen (2L nasal cannula), Urine Catheter, DVT Prophylaxis General: Alert, Oriented, Cooperative, No Acute Distress HEENT: Pupils Equal, Pupils Reactive, EOMI, Mucous Membr. Moist/[place] Neck: Supple Lungs: Normal Respiratory Effort, Decreased Breath Sounds, Crackles, Rales Cardiovascular: Regular Rhythm, Tachycardia GI/Abdominal Exam: Normal Bowel Sounds, Soft, Non-Tender, Pelvis Stable, Distended (Male) Exam: Deferred Back Exam: Normal Inspection, Full Range of Motion Extremities: Normal Inspection, Normal Range of Motion, Non-Tender, Normal Capillary Refill, Pedal Edema (bilateral), Increased Warmth, Redness, Other ( bilateral lower leg lesions, pustules, erythema, hot to touch) Peripheral Pulses: 1+: Posterior Tibial (L), Posterior Tibial (R), Dorsalis Pedis (L), Dorsalis Pedis (R) Skin: Warm, Dry, Intact, Rash (biltateral lower legs) Wound/Incisions: Healing Well, Erythema Improving Neurological: No New Focal Deficit Psy/Mental Status: Alert, Normal Affect, Normal Mood - Problem List & Annotations (1) CHF exacerbation SNOMED Code(s): 14984877 Code(s): I50.9 - HEART FAILURE, UNSPECIFIED Status: Acute Priority: High Current Visit: Yes Qualifiers: Heart failure type: unspecified Qualified Code(s): I50.9 - Heart failure, unspecified (2) Cellulitis SNOMED Code(s): 812069055 Code(s): L03.90 - CELLULITIS, UNSPECIFIED Status: Acute Priority: High Current Visit: Yes Qualifiers: Site of cellulitis: extremity Site of cellulitis of extremity: lower extremity Laterality: unspecified laterality Qualified Code(s): L03.119 - Cellulitis of unspecified part of limb (3) Hypoxia SNOMED Code(s): 749188218 Code(s): R09.02 - HYPOXEMIA Status: Acute Priority: High Current Visit : Yes (4) Obesity (BMI 30-39.9) SNOMED Code(s): 607276387, 618023404 Code(s): E66.9 - OBESITY, UNSPECIFIED Status: Chronic Priority: Low Current Visit: Yes - Problem List Review Problem List Initiated/Reviewed/Updated: Yes - My Orders Last 24 Hours: My Active Orders 04/05/18 17:09 Bedrest Bathroom Privileges [RC] ASDIRECTED May Shower [RC] ASDIRECTED Oxygen Therapy [RC] PRN Up ad Veronica [RC] ASDIRECTED Up to Chair [RC] ASDIRECTED VTE/DVT Education [RC] Vital Signs [RC] Q4HR Acetaminophen [Tylenol] 650 mg PO Q4H PRN Acetaminophen/HYDROcodone [[place] 325-5 MG] 1 tab PO Q4H PRN Albuterol [Proventil Neb Soln] 2.5 mg NEB Q2H PRN Albuterol/Ipratropium [DuoNeb 3.0-0.5 MG/3 ML] 3 ml NEB Q4H PRN Bisacodyl [Dulcolax] 5 mg PO DAILY PRN Docusate Sodium [Colace] 100 mg PO BID PRN Docusate Sodium/Sennosides [Senna Plus] 1 tab PO BID PRN Magnesium Hydroxide [Milk of Magnesia] 30 ml PO Q12H PRN Morphine 2 mg IVPUSH Q2H PRN Polyethylene Glycol 3350 [MiraLAX] 17 gm PO DAILY PRN Promethazine [Phenergan] 25 mg PO Q6H PRN Promethazine [Phenergan] 6.25 mg Sodium Chloride 0.9% [Normal Saline] 50 ml IV Q6H Temazepam [Restoril] 7.5 mg PO BEDTIME PRN 04/05/18 17:10 Pulse Oximetry [RC] CONTINUOUS 04/05/18 17:16 RT Aerosol Therapy [RC] ASDIRECTED 04/05/18 17:22 Consult to [employer] [CONS] Routine 04/05/18 17:23 Consult to Case Management [CONS] Routine Consult to Respiratory Therapy [Respiratory Care Assess and Treatment] [CONS] Routine Consult to Spiritual Care [CONS] Routine OT Evaluation and Treatment [CONS] Routine PT Evaluation and Treatment [CONS] Routine 04/05/18 18:04 hydrALAZINE [Apresoline] 10 mg IVPUSH Q4H PRN 04/05/18 18:27 Blood Culture x2 Reflex Set [OM.PC] Stat 04/05/18 18:43 CULTURE BLOOD [BC] Stat 04/05/18 18:48 CULTURE BLOOD [BC] Stat 04/05/18 18:55 Resuscitation Status Routine 04/05/18 19:00 Urinary Catheter Assessment [RC] Q4HR Vancomycin 1 gm Vancomycin 500 mg Sodium Chloride 0.9% [Normal Saline] 500 ml IV Q12H 04/05/18 19:02 CULTURE WOUND [RM] Stat 04/06/18 05:11 Vancomycin Pharmacy to Dose [Pharmacy to Dose - Vancomycin] 0 dose .XX ASDIRECTED PRN 04/06/18 09:00 Aspirin [Halfprin] 81 mg PO DAILY Benazepril [Lotensin] 20 mg PO DAILY Enoxaparin [Lovenox] 40 mg SUBCUT DAILY Spironolactone [Aldactone] 25 mg PO DAILY 04/06/18 11:10 Pantoprazole [ProTONIX] 40 mg PO DAILY 04/06/18 19:00 Burciaga Catheter Insertion [Insert Urinary Catheter] [OM.PC] Q24H 04/06/18 Breakfast Low Sodium [Sodium Restricted Diet] [DIET] 04/07/18 05:11 Chest 1V Frontal [CR] AM CULTURE BLOOD [BC] AM CULTURE BLOOD [BC] AM Blood Culture x2 Reflex Set [OM.PC] AM - Plan Plan:: I/P: Acute: CHF exacerbation -Acute on Chronic -Risk factor: Stopped taking Coreg on Thursday -SOB, Dyspnea, Orthopnea, Pedal edema, BiPAP needed to maintain O2>92% --> NO LONGER ON BiPAP -Respiratory Alkalosis in ED -BNP 8209-->41493 -CXR: pulmonary congestion -EKG: Sinus tachy with single PVC, Wide QRS (suspected old anterior septal AK ) -ECHO ordered -Lasix 60 and KCl 40 given in ED -Continue IV Lasix, potassium replacement as needed -Burciaga Cath 2/2 urinary retention -Titrate O2 as needed to maintain >92% --> Now 95% on 2L nasal cannula -Low sodium diet, Fluid restriction -Monitor Cellulitis, bilateral lower extremities- improving -Risk factor: h/o staph infection, lower extremity edema 2/2 CHF -Erythematous rashes with weeping pustules, bilateral -Hot to the touch on exam--> improving -Now has fever of 100.7-->99.8 today -Continue IV Vanco 500mg -Negative for MRSA, Culture wound pending -Sepsis work up -Monitor Bacteremia -Most likely 2/2 Cellulitis -Blood culture--> Gram + Cocci -Repeat Blood culture tomorrow -Continue IV Vanco -WBC 34.01-->31.55 -Lactic Acid 2.5, CRP 16.6 -Monitor Acute Renal Failure -Most likely 2/2 above -eGFR 40-->35.75 -BUN 28-->35, Cr 1.7-->1.9 -Monitor Abdominal Distension -Most likely 2/2 above -Pt states doesn't feel like weight gain, slow onset -AST/ALT normal range, no h/o ETOH abuse -Pt is overweight; BMI 38.6 -CT abdomen/pelvis--> no ascites Chronic: HTN--> Continue at home meds, hydralazine PRN HLD Obesity Plan: ICU--> transfer to med surg Contact Precautions He remains stable and continues to improve clinically Other orders as indicated above Routine AM labs CM for discharge planning PT/OT/RT DVT Prophylaxis: Lovenox GI Prophylaxis: Protonix Ambulated as tolerated Code Status: DNR/DNI/Comfort measures; PCP: Dr. Gerard Page
--- NOTE | 2018-04-06 13:09 | CT ---
CT abdomen and pelvis Technique: Multiple axial sections were obtained from above the dome of the diaphragm inferiorly through the pubic symphysis. Intravenous and oral contrast not utilized. Comparison: No prior study is seen. Findings: Minimal left-sided pleural effusion is seen with a small right-sided pleural effusion. Areas of atelectasis and scarring are seen within both lung bases. Heart is enlarged. Liver shows no focal abnormality. Spleen appears within normal limits. Left adrenal gland shows slight nodularity which is believed to be incidental. Right adrenal gland appears within normal limits. Pancreas shows no discrete abnormality. Gallbladder contains no calcified gallstones. 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 No abnormal calcifications are seen along the course of the ureters. Locke catheter is noted within the bladder. Hazy inflammatory-type change is seen within the mesentery which may be chronic as no etiology is seen for this finding. Incidental artifact containing left inguinal hernia. Appendix not seen with certainty. No ascites is seen. Scattered small retroperitoneal lymph nodes are seen believed to be incidental. Bone window settings were reviewed show scattered degenerative change within the spine appears most severe within the apophyseal joints of L4-5 and L5-S1. Impression: 1. Small left-sided pleural effusion with slightly larger but small right-sided pleural effusion. Bibasilar atelectasis and scarring is noted. 2. Other incidental findings as noted above. Nothing acute is seen. No ascites is identified. Diagnostic code #2
[2018-04-06] MEDS ORDERED: Morphine 2 MG/ML Syringe IVPUSH ONE (15:23)
[2018-04-06] MEDS: Potassium Chloride 20 MEQ Tab.ER PO SCH ×2 (15:36→18:11)
[2018-04-06] MEDS ORDERED: DOBUTamine/Dextrose 5%-Water 250 MG/250 ML BAG IV SCH (15:45)
[2018-04-06] MEDS ORDERED: Morphine 2 MG/ML Syringe IVPUSH PRN (17:15)
[2018-04-07] MEDS: Vancomycin 1500 MG in Sodium Chloride 0.9% 500 ML IV SCH ×6 (06:42→20:28)
[2018-04-07] MEDS: Pantoprazole 40 MG Tab.CR PO SCH (08:25)
[2018-04-07] MEDS: Aspirin 81 MG Tab.EC PO SCH (08:25)
[2018-04-07] MEDS: Enoxaparin 40 MG/0.4 ML Syringe SUBCUT SCH (08:25)
--- NOTE | 2018-04-07 08:48 | CR ---
Chest: Frontal view of the chest was obtained. Comparison: Prior chest x-ray of 04/05/18. Heart is enlarged. Tortuous thoracic aorta is seen. Slight scarring is noted within the left midlung. Central lung markings are mildly increased which appear chronic. No acute parenchymal change is seen. Minimal pleural thickening is seen within the right lung base. Scoliosis is present within the spine. Impression: 1. Cardiomegaly with increased central lung markings. Findings most likely are chronic with findings improved from previous exam. 2. Other incidental findings. Diagnostic code #2
[2018-04-07] MEDS: Bumetanide 1 MG/4 ML MDV IVPUSH SCH ×2 (10:24→20:59)
--- NOTE | 2018-04-07 13:04 | PCM.PN ---
- General Info Date of Service: 04/07/18 Admission Dx/Problem (Free Text): CHF Subjective Update: In to see Alon today. He is sitting in a chair visiting with his sister-in- law. Overall he is doing quite well and states he is feeling better. He has no complaints, except for continued dyspnea on exertion. His legs are looking better. He is on 1L nasal cannula, usually not on at home. He would like to keep his burciaga catheter in as he is having some urinary retention. Will try Flomax today and recommend urinary consult. I discussed the results of the abdominal CT with him- no abnormal findings, no ascites. He can f/u with his PCP for further workup. I also discussed his Echo results- he has CHF with EF < 20%. He should f/u with his PCP and language path. He has been sleeping well. Good appetite. Ambulating as tolerated. Incentive Spirometry. Pain is controlled. No Fever, chills, chest pain, nausea, vomiting, diarrhea. Yesterday he had some fluctuation with his blood pressure, so we are holding his BP medications and continuing with Bumex today. No concerns from nursing. Will likely D/C in a couple of days pending clinical disposition. Functional Status: Reports: Pain Controlled, Tolerating Diet, Ambulating, Urinating (burciaga catheter) - Review of Systems General: Reports: Fatigue. Denies: Fever, Weakness, Chills HEENT: Reports: No Symptoms Pulmonary: Reports: Shortness of Breath (on exertion). Denies: Cough, Sputum Cardiovascular: Reports: Dyspnea on Exertion, Orthopnea, Edema (bilateral). Denies: Chest Pain, Palpitations Gastrointestinal: Reports: Other (Abdominal Distention). Denies: Abdominal Pain , Constipation, Diarrhea, Nausea, Vomiting Genitourinary: Reports: Frequency, Retention. Denies: Dysuria, Burning, Pain, Urgency Musculoskeletal: Reports: Other (bilateral leg swelling) Skin: Reports: Other (Erythema, Wound, Lesions, bilateral lower leg lesions "bursted open" with leg edema) Neurological: Reports: No Symptoms Psychiatric: Reports: No Symptoms - Patient Data Vitals - Most Recent: Last Vital Signs Temp 98 F 04/07/18 12:37 Pulse 102 H 04/07/18 12:37 Resp 24 H 04/07/18 12:37 BP 128/99 H 04/07/18 12:37 Pulse Ox 97 05/23/18 12:37 Weight - Most Recent: 266 lb 6.4 oz I&O - Last 24 Hours: Intake & Output 04/06/18 04/07/18 04/07/18 22:59 06:59 14:59 Intake Total 777 730 826 Output Total 320 350 250 Balance 457 494 576 Lab Results Last 24 Hours: Laboratory Results - last 24 hr 04/06/18 04/07/18 04/07/18 Range/Units 13:19 05:05 05:05 WBC 20.72 H (4.23-9.07) K/mm3 RBC 5.06 (4.63-6.08) M/mm3 Hgb 13.7 (13.7-17.5) gm/L Hct 43.2 (40.1-51.0) % MCV 85.4 (79.0-92.2) fl MCH 27.1 (25.7-32.2) pg MCHC 31.7 L (32.2-35.5) g/dl RDW Std Deviation 50.3 H (35.1-43.9) fL Plt Count 156 L (163-337) K/mm3 MPV 13.8 H (9.4-12.3) fl Neut % (Auto) 84.2 H (34.0-67.9) % Lymph % (Auto) 7.7 L (21.8-53.1) % [place] % (Auto) 7.8 (5.3-12.2) % Eos % (Auto) 0 L (0.8-7.0) Baso % (Auto) 0.1 (0.1-1.2) % Neut # (Auto) 17.42 H (1.78-5.38) K/mm3 Lymph # (Auto) 1.60 (1.32-3.57) K/mm3 [place] # (Auto) 1.61 H (0.30-0.82) K/mm3 Eos # (Auto) 0.01 L (0.04-0.54) K/mm3 Baso # (Auto) 0.03 (0.01-0.08) K/mm3 Manual Slide Review Abnormal smear Sodium 139 (136-145) mEq/L Potassium 3.4 L 4.0 (3.5-5.1) mEq/L Chloride 104 (98-107) mEq/L Carbon Dioxide 25 (21-32) mEq/L Anion Gap 14.0 (5-15) BUN 41 H (7-18) mg/dL Creatinine 1.7 H (0.7-1.3) mg/dL Est Cr Clr Drug Dosing 39.96 mL/min Estimated GFR (MDRD) 40 (>60) mL/min BUN/Creatinine Ratio 24.1 H (14-18) Glucose 114 (83-115) mg/dL Calcium 8.8 (8.5-10.1) mg/dL Magnesium 2.1 (1.8-2.4) mg/dl C-Reactive Protein 15.1 H* (<1.0) mg/dL NT-Pro-B Natriuret Pep (0-125) pg/mL Urine Color (Yellow) Urine Appearance (Clear) Urine pH (5.0-8.0) Ur Specific [place] (1.005-1.030) Urine Protein (Negative) Urine Glucose (UA) (Negative) Urine Ketones (Negative) Urine Occult Blood (Negative) Urine Nitrite (Negative) Urine Bilirubin (Negative) Urine Urobilinogen (0.2-1.0) Ur Leukocyte Esterase (Negative) Urine RBC (0-5) /hpf Urine WBC (0-5) /hpf Ur Epithelial Cells (0-5) /hpf Urine Bacteria (FEW) /hpf Urine Mucus (FEW) /hpf 04/07/18 04/07/18 Range/Units 05:05 11:44 WBC (4.23-9.07) K/mm3 RBC (4.63-6.08) M/mm3 Hgb (13.7-17.5) gm/L Hct (40.1-51.0) % MCV (79.0-92.2) fl MCH (25.7-32.2) pg MCHC (32.2-35.5) g/dl RDW Std Deviation (35.1-43.9) fL Plt Count (163-337) K/mm3 MPV (9.4-12.3) fl Neut % (Auto) (34.0-67.9) % Lymph % (Auto) (21.8-53.1) % [place] % (Auto) (5.3-12.2) % Eos % (Auto) (0.8-7.0) Baso % (Auto) (0.1-1.2) % Neut # (Auto) (1.78-5.38) K/mm3 Lymph # (Auto) (1.32-3.57) K/mm3 [place] # (Auto) (0.30-0.82) K/mm3 Eos # (Auto) (0.04-0.54) K/mm3 Baso # (Auto) (0.01-0.08) K/mm3 Manual Slide Review Sodium (136-145) mEq/L Potassium (3.5-5.1) mEq/L Chloride (98-107) mEq/L Carbon Dioxide (21-32) mEq/L Anion Gap (5-15) BUN (7-18) mg/dL Creatinine (0.7-1.3) mg/dL Est Cr Clr Drug Dosing mL/min Estimated GFR (MDRD) (>60) mL/min BUN/Creatinine Ratio (14-18) Glucose (83-115) mg/dL Calcium (8.5-10.1) mg/dL Magnesium (1.8-2.4) mg/dl C-Reactive Protein (<1.0) mg/dL NT-Pro-B Natriuret Pep 8256 H (0-125) pg/mL Urine Color [place] H (Yellow) Urine Appearance Slt cloudy H (Clear) Urine pH 5.5 (5.0-8.0) Ur Specific [place] 1.020 (1.005-1.030) Urine Protein 1+ H (Negative) Urine Glucose (UA) Negative (Negative) Urine Ketones Negative (Negative) Urine Occult Blood 3+ H (Negative) Urine Nitrite Negative (Negative) Urine Bilirubin Negative (Negative) Urine Urobilinogen 0.2 (0.2-1.0) Ur Leukocyte Esterase Trace H (Negative) Urine RBC 30-40 H (0-5) /hpf Urine WBC 0-5 (0-5) /hpf Ur Epithelial Cells 0-5 (0-5) /hpf Urine Bacteria Few (FEW) /hpf Urine Mucus Few (FEW) /hpf Stephon Results Last 24 Hours: Microbiology 04/05/18 18:43 Aerobic Blood Culture - Preliminary Blood - Venous Beta Streptococcus Group A Anaerobic Blood Culture - Preliminary NO GROWTH AFTER 1 DAY 04/05/18 18:48 Aerobic Blood Culture - Preliminary Blood - Venous - Lab Draw NO GROWTH AFTER 1 DAY Anaerobic Blood Culture - Preliminary NO GROWTH AFTER 1 DAY Med Orders - Current: Current Medications Acetaminophen (Tylenol) 650 mg PO Q4H PRN PRN Reason: Pain (Mild 1-3)/fever Hydrocodone Bitart/Acetaminophen ([place] 325-5 Mg) 1 tab PO Q4H PRN PRN Reason: Pain (moderate 4-6) Albuterol (Proventil Neb Soln) 2.5 mg NEB Q2H PRN PRN Reason: Shortness Of Breath/wheezing Albuterol/Ipratropium (Duoneb 3.0-0.5 Mg/3 Ml) 3 ml NEB Q4H PRN PRN Reason: Shortness Of Breath/wheezing Aspirin (Halfprin) 81 mg PO DAILY [facility] Last Admin: 04/07/18 08:25 Dose: 81 mg Benazepril HCl (Lotensin) 20 mg PO DAILY [facility] Last Admin: 04/06/18 08:12 Dose: 20 mg Bisacodyl (Dulcolax) 5 mg PO DAILY PRN PRN Reason: Constipation Bumetanide (Bumex) 0.5 mg IVPUSH BID [facility] Last Admin: 04/07/18 10:24 Dose: 0.5 mg Docusate Sodium (Colace) 100 mg PO BID PRN PRN Reason: Constipation Enoxaparin Sodium (Lovenox) 40 mg SUBCUT DAILY [facility] Last Admin: 04/07/18 08:25 Dose: 40 mg Hydralazine HCl (Apresoline) 10 mg IVPUSH Q4H PRN PRN Reason: Hypertension Last Admin: 04/06/18 06:35 Dose: 10 mg Promethazine HCl 6.25 mg/ (Sodium Chloride) 50.25 mls @ 100 mls/hr IV Q6H PRN PRN Reason: Nausea/Vomiting Vancomycin HCl 1 gm/Vancomycin HCl 500 mg/ Sodium Chloride 500 mls @ 333.025 mls/hr IV Q12H [facility] Last Admin: 04/07/18 06:42 Dose: 333.025 mls/hr Dobutamine HCl/Dextrose (Dobutamine In D5w 250 Mg/250 Ml) 250 mg in 250 mls @ 14.631 mls/hr IV TITRATE [facility]; Protocol Magnesium Hydroxide (Milk Of Magnesia) 30 ml PO Q12H PRN PRN Reason: Constipation Metoprolol Tartrate (Lopressor) 5 mg IVPUSH Q4H PRN PRN Reason: Tachycardia Last Admin: 04/05/18 21:38 Dose: 5 mg Morphine Sulfate (Morphine) 0.5 mg IVPUSH Q4H PRN PRN Reason: Dyspnea Pantoprazole Sodium (Protonix) 40 mg PO DAILY [facility] Last Admin: 04/07/18 08:25 Dose: 40 mg Polyethylene Glycol (Miralax) 17 gm PO DAILY PRN PRN Reason: Constipation Potassium Chloride (Pharmacy To Dose - Potassium Replacement) 1 dose .XX ASDIRECTED TANI Promethazine HCl (Phenergan) 25 mg PO Q6H PRN PRN Reason: Nausea/Vomiting Senna/Docusate Sodium (Senna Plus) 1 tab PO BID PRN PRN Reason: Constipation Spironolactone (Aldactone) 25 mg PO DAILY [facility] Last Admin: 04/06/18 08:12 Dose: 25 mg Temazepam (Restoril) 7.5 mg PO BEDTIME PRN PRN Reason: Sleep Last Admin: 04/06/18 20:22 Dose: 7.5 mg Vancomycin HCl (Pharmacy To Dose - Vancomycin) 0 dose .XX ASDIRECTED PRN PRN Reason: RX TO DOSE VANCOMYCIN Discontinued Medications Furosemide (Lasix) 60 mg IVPUSH NOW ONE Stop: 04/05/18 13:05 Last Admin: 04/05/18 13:20 Dose: 60 mg Furosemide (Lasix) 40 mg IVPUSH DAILY [facility] Furosemide 100 mg/ Sodium (Chloride) 100 mls @ 1.5 mls/hr IV TITRATE TANI; Protocol Last Infusion: 04/06/18 10:26 Dose: 2.5 mls/hr Furosemide 100 mg/ Sodium (Chloride) 100 mls @ 2.5 mls/hr IV TITRATE [facility] Morphine Sulfate (Morphine) 2 mg IVPUSH Q2H PRN PRN Reason: Pain (severe 7-10) Stop: 04/06/18 17:15 Morphine Sulfate (Morphine) 0.5 mg IVPUSH ONETIME ONE Stop: 04/06/18 15:24 Last Admin: 04/06/18 15:37 Dose: 0.5 mg Pantoprazole Sodium (Protonix Iv) 40 mg IVPUSH DAILY [facility] Last Admin: 04/06/18 08:14 Dose: 40 mg Potassium Chloride (Klor-Con M20) 40 meq PO ONETIME ONE Stop: 04/05/18 14:11 Last Admin: 04/05/18 15:20 Dose: 40 meq Potassium Chloride (Klor-Con M20) 40 meq PO Q4H TANI Stop: 04/06/18 18:46 Last Admin: 04/06/18 18:11 Dose: 40 meq - Exam Quality Assessment: Supplemental Oxygen (1 L nasal cannula), Urine Catheter, DVT Prophylaxis General: Alert, Oriented, Cooperative, No Acute Distress HEENT: Pupils Equal, Pupils Reactive, EOMI, Mucous Membr. Moist/Orient Neck: Supple Lungs: Clear to Auscultation, Normal Respiratory Effort Cardiovascular: Regular Rhythm, Tachycardia GI/Abdominal Exam: Normal Bowel Sounds, Soft, Non-Tender, Pelvis Stable, Distended (Male) Exam: Deferred Back Exam: Normal Inspection, Full Range of Motion Extremities: Normal Inspection, Normal Range of Motion, Non-Tender, Normal Capillary Refill, Pedal Edema (bilateral), Increased Warmth (improving), Redness (improving), Other (bilateral lower leg lesions, pustules, erythema, hot to touch- improving) Peripheral Pulses: 1+: Posterior Tibial (L), Posterior Tibial (R), Dorsalis Pedis (L), Dorsalis Pedis (R) Skin: Warm, Dry, Intact, Rash (bilateral lower legs- improving) Wound/Incisions: Healing Well, Drainage, Erythema Improving Neurological: No New Focal Deficit, Cranial Nerves Intact (grossly) Psy/Mental Status: Alert, Normal Affect, Normal Mood - Problem List & Annotations (1) CHF exacerbation SNOMED Code(s): 16601677 Code(s): I50.9 - HEART FAILURE, UNSPECIFIED Status: Acute Priority: High Current Visit: Yes Qualifiers: Heart failure type: unspecified Qualified Code(s): I50.9 - Heart failure, unspecified (2) Cellulitis SNOMED Code(s): 269971546 Code(s): L03.90 - CELLULITIS, UNSPECIFIED Status: Acute Priority: High Current Visit: Yes Qualifiers: Site of cellulitis: extremity Site of cellulitis of extremity: lower extremity Laterality: unspecified laterality Qualified Code(s): L03.119 - Cellulitis of unspecified part of limb (3) Hypoxia SNOMED Code(s): 046742327 Code(s): R09.02 - HYPOXEMIA Status: Acute Priority: High Current Visit : Yes (4) Obesity (BMI 30-39.9) SNOMED Code(s): 023978821, 657519811 Code(s): E66.9 - OBESITY, UNSPECIFIED Status: Chronic Priority: Low Current Visit: Yes (5) Urinary retention SNOMED Code(s): 134233840 Code(s): R33.9 - RETENTION OF URINE, UNSPECIFIED Status: Acute Priority: High Current Visit: Yes - Problem List Review Problem List Initiated/Reviewed/Updated: Yes - My Orders Last 24 Hours: My Active Orders 04/06/18 14:15 Potassium Rep Pharmacy to Dose [Pharmacy to Dose - Potassium Replacement] 1 dose .XX ASDIRECTED 04/06/18 15:45 DOBUTamine/Dextrose 5%-Water [DOBUTamine in D5W 250 MG/250 ML] 250 mg in 250 ml IV TITRATE 04/06/18 19:00 Burciaga Catheter Insertion [Insert Urinary Catheter] [OM.PC] Q24H 04/07/18 05:05 CULTURE BLOOD [BC] AM 04/07/18 05:10 CULTURE BLOOD [BC] AM 04/07/18 05:11 Blood Culture x2 Reflex Set [OM.PC] AM - Plan Plan:: I/P: Acute: CHF exacerbation, Improving -Acute on Chronic -Risk factor: Stopped taking Coreg on Thursday -SOB, Dyspnea, Orthopnea, Pedal edema, BiPAP needed to maintain O2>92% --> NO LONGER ON BiPAP -Respiratory Alkalosis in ED -BNP 8209-->40759-->8256 -CXR: pulmonary congestion -EKG: Sinus tachy with single PVC, Wide QRS (suspected old anterior septal MO ) -ECHO--> LVEF <20%, Grade III restrictive LV diastolic filling -Lasix 60 and KCl 40 given in ED -Continue IV Lasix, potassium replacement as needed--> D/C Lasix drip, start Bumex BID -Titrate O2 as needed to maintain >92% --> Now 97% on 1L nasal cannula -Low sodium diet, Fluid restriction -Monitor Cellulitis, bilateral lower extremities, improving -Risk factor: h/o staph infection, lower extremity edema 2/2 CHF -Erythematous rashes with weeping pustules, bilateral -Hot to the touch on exam--> improving -Fever of 100.7-->99.8-->98 -Continue IV Vanco 500mg -Negative for MRSA -Culture wound pending--> Staph aureus and beta strep group A; awaiting culture sensitivity -Sepsis work up -Wound Care -Monitor Bacteremia -Most likely 2/2 Cellulitis -Blood culture--> Beta Strep Group A; awaiting culture sensitivity -Repeat Blood culture--> pending results -Continue IV Vanco -WBC 34.01-->31.55-->20.72 -Lactic Acid 2.5-->1.6, CRP 16.6-->15.1 -Monitor Acute Renal Failure -Most likely 2/2 above -eGFR 40-->35.75-->40 -BUN 28-->35-->41, Cr 1.7-->1.9-->1.7 -Monitor Urinary Retention and Frequency -Acute on Chronic -Has not had prostate exam; would like one here -Burciaga Catheter -Wants to try Flomax -Urology Consult Abdominal Distension -Most likely 2/2 above -Pt states doesn't feel like weight gain, slow onset -AST/ALT normal range, no h/o ETOH abuse -Pt is overweight; BMI 38.6 -Denies constipation -CT abdomen/pelvis--> no ascites -F/U with PCP Chronic: HTN--> Continue at home meds, hydralazine PRN HLD Obesity Plan: ICU--> transfer to med surg Contact Precautions He remains stable and continues to improve clinically Other orders as indicated above Routine AM labs CM for discharge planning PT/OT/RT DVT Prophylaxis: Lovenox GI Prophylaxis: Protonix Ambulated as tolerated Code Status: DNR/DNI/Comfort measures; PCP: Dr. Gerard Page
[2018-04-07] MEDS: Metoprolol Tartrate 5 MG/5 ML SDV IVPUSH PRN (16:25)
[2018-04-07] MEDS: Temazepam 7.5 MG Cap PO PRN (20:58)
[2018-04-07] MEDS: Tamsulosin 0.4 MG Cap.ER PO SCH (20:59)
[2018-04-08] MEDS ORDERED: Vancomycin 1500 MG in Sodium Chloride 0.9% 500 ML IV SCH ×3 (02:00)
[2018-04-08] MEDS: Bumetanide 1 MG/4 ML MDV IVPUSH SCH (09:12)
[2018-04-08] MEDS: Enoxaparin 40 MG/0.4 ML Syringe SUBCUT SCH (09:14)
[2018-04-08] MEDS: Pantoprazole 40 MG Tab.CR PO SCH (09:14)
[2018-04-08] MEDS: Aspirin 81 MG Tab.EC PO SCH (09:15)
--- NOTE | 2018-04-08 11:02 | PCM.PN ---
- General Info Date of Service: 04/08/18 Admission Dx/Problem (Free Text): CHF Subjective Update: In to see Alon today. He is sitting up in bed visiting with a friend. Overall he is doing well, states he is feeling better but feeling tired. He continues to have dyspnea on exertion. He is on 1L nasal cannula, we will take it off today and see how he does without it. Will consult RT to see if he needs oxygen at home. His legs are looking better. We will take the burciaga catheter out today and have a bedside urinal for him. Flomax started yesterday. At this time he does not want to follow up with urology, so he has decided not to have the prostate exam. We discussed that he will most likely be D/C'd tomorrow, as he has responded well to treatment. We will discontinue the Vanco today and start Augmentin. We will also start his home dose of Bumex today. He has been sleeping well. Good appetite. Ambulating as tolerated. Incentive Spirometry. Pain is controlled. No Fever, chills, chest pain, nausea, vomiting, diarrhea. No concerns from nursing. Will likely D/C tomorrow pending clinical disposition. I also discussed the option of hospice with him, as he does not want to move forward with aggressive treatment for his LVEF of <20% and other chronic conditions. He is open to the idea. I have contacted his PCP, Dr. Page, and he would like to wait to see him in clinic before making the decision to start Hospice care. Functional Status: Reports: Pain Controlled, Tolerating Diet, Ambulating, Urinating - Review of Systems General: Reports: Fatigue. Denies: Fever, Chills HEENT: Reports: No Symptoms Pulmonary: Reports: Shortness of Breath (on exertion). Denies: Cough, Sputum Cardiovascular: Reports: Dyspnea on Exertion, Orthopnea, Edema (bilateral, 2+). Denies: Chest Pain, Palpitations Gastrointestinal: Reports: Other (Abdominal distension). Denies: Abdominal Pain , Constipation, Diarrhea, Nausea, Vomiting Genitourinary: Reports: Frequency, Retention. Denies: Dysuria, Burning, Pain, Urgency Musculoskeletal: Reports: Other (bilateral lower leg swelling) Skin: Reports: Other (Erythema, Wound, Lesions, bilateral lower leg lesions "bursted open" with leg edema) Neurological: Reports: No Symptoms Psychiatric: Reports: No Symptoms - Patient Data Vitals - Most Recent: Last Vital Signs Temp 97.9 F 04/08/18 07:37 Pulse 91 04/08/18 07:37 Resp 23 H 04/08/18 07:37 BP 114/68 04/08/18 07:37 Pulse Ox 95 04/08/18 07:37 Weight - Most Recent: 269 lb 1 oz I&O - Last 24 Hours: Intake & Output 04/07/18 04/08/18 04/08/18 22:59 06:59 14:59 Intake Total 660 900 300 Output Total 900 Balance 660 0 300 Lab Results Last 24 Hours: Laboratory Results - last 24 hr 04/07/18 04/07/18 04/07/18 Range/Units 11:44 17:00 18:38 WBC (4.23-9.07) K/mm3 RBC (4.63-6.08) M/mm3 Hgb (13.7-17.5) gm/L Hct (40.1-51.0) % MCV (79.0-92.2) fl MCH (25.7-32.2) pg MCHC (32.2-35.5) g/dl RDW Std Deviation (35.1-43.9) fL Plt Count (163-337) K/mm3 MPV (9.4-12.3) fl Neut % (Auto) (34.0-67.9) % Lymph % (Auto) (21.8-53.1) % Edwards % (Auto) (5.3-12.2) % Eos % (Auto) (0.8-7.0) Baso % (Auto) (0.1-1.2) % Neut # (Auto) (1.78-5.38) K/mm3 Lymph # (Auto) (1.32-3.57) K/mm3 Edwards # (Auto) (0.30-0.82) K/mm3 Eos # (Auto) (0.04-0.54) K/mm3 Baso # (Auto) (0.01-0.08) K/mm3 Sodium 139 (136-145) mEq/L Potassium 4.1 (3.5-5.1) mEq/L Chloride 104 (98-107) mEq/L Carbon Dioxide 28 (21-32) mEq/L Anion Gap 11.1 (5-15) BUN 42 H (7-18) mg/dL Creatinine 1.7 H (0.7-1.3) mg/dL Est Cr Clr Drug Dosing 39.96 mL/min Estimated GFR (MDRD) 40 (>60) mL/min BUN/Creatinine Ratio 24.7 H (14-18) Glucose 116 H (83-115) mg/dL Calcium 8.7 (8.5-10.1) mg/dL Magnesium 2.1 (1.8-2.4) mg/dl C-Reactive Protein (<1.0) mg/dL Urine Color [place] H (Yellow) Urine Appearance Slt cloudy H (Clear) Urine pH 5.5 (5.0-8.0) Ur Specific [place] 1.020 (1.005-1.030) Urine Protein 1+ H (Negative) Urine Glucose (UA) Negative (Negative) Urine Ketones Negative (Negative) Urine Occult Blood 3+ H (Negative) Urine Nitrite Negative (Negative) Urine Bilirubin Negative (Negative) Urine Urobilinogen 0.2 (0.2-1.0) Ur Leukocyte Esterase Trace H (Negative) Urine RBC 30-40 H (0-5) /hpf Urine WBC 0-5 (0-5) /hpf Ur Epithelial Cells 0-5 (0-5) /hpf Urine Bacteria Few (FEW) /hpf Urine Mucus Few (FEW) /hpf Vancomycin Trough 21.4 H (10.0-20.0) 18 18 Range/Units 06:34 06:34 WBC 11.98 H (4.23-9.07) K/mm3 RBC 4.74 (4.63-6.08) M/mm3 Hgb 12.7 L (13.7-17.5) gm/L Hct 40.7 (40.1-51.0) % MCV 85.9 (79.0-92.2) fl MCH 26.8 (25.7-32.2) pg MCHC 31.2 L (32.2-35.5) g/dl RDW Std Deviation 49.3 H (35.1-43.9) fL Plt Count 151 L (163-337) K/mm3 MPV 13.1 H (9.4-12.3) fl Neut % (Auto) 75.9 H (34.0-67.9) % Lymph % (Auto) 13.9 L (21.8-53.1) % Edwards % (Auto) 9.5 (5.3-12.2) % Eos % (Auto) 0.3 L (0.8-7.0) Baso % (Auto) 0.2 (0.1-1.2) % Neut # (Auto) 9.11 H (1.78-5.38) K/mm3 Lymph # (Auto) 1.66 (1.32-3.57) K/mm3 Edwards # (Auto) 1.14 H (0.30-0.82) K/mm3 Eos # (Auto) 0.03 L (0.04-0.54) K/mm3 Baso # (Auto) 0.02 (0.01-0.08) K/mm3 Sodium 140 (136-145) mEq/L Potassium 3.6 (3.5-5.1) mEq/L Chloride 105 (98-107) mEq/L Carbon Dioxide 26 (21-32) mEq/L Anion Gap 12.6 (5-15) BUN 42 H (7-18) mg/dL Creatinine 1.5 H (0.7-1.3) mg/dL Est Cr Clr Drug Dosing 45.29 mL/min Estimated GFR (MDRD) 46 (>60) mL/min BUN/Creatinine Ratio 28.0 H (14-18) Glucose 108 (83-115) mg/dL Calcium 8.5 (8.5-10.1) mg/dL Magnesium 2.0 (1.8-2.4) mg/dl C-Reactive Protein 7.0 H* (<1.0) mg/dL Urine Color (Yellow) Urine Appearance (Clear) Urine pH (5.0-8.0) Ur Specific [place] (1.005-1.030) Urine Protein (Negative) Urine Glucose (UA) (Negative) Urine Ketones (Negative) Urine Occult Blood (Negative) Urine Nitrite (Negative) Urine Bilirubin (Negative) Urine Urobilinogen (0.2-1.0) Ur Leukocyte Esterase (Negative) Urine RBC (0-5) /hpf Urine WBC (0-5) /hpf Ur Epithelial Cells (0-5) /hpf Urine Bacteria (FEW) /hpf Urine Mucus (FEW) /hpf Vancomycin Trough (10.0-20.0) Stephon Results Last 24 Hours: Microbiology 04/06/18 00:07 Wound Culture - Final Leg, Unspecified Beta Streptococcus Group A Staphylococcus Aureus 04/05/18 18:43 Aerobic Blood Culture - Final Blood - Venous Beta Streptococcus Group A Anaerobic Blood Culture - Preliminary NO GROWTH AFTER 2 DAYS 04/05/18 18:48 Aerobic Blood Culture - Preliminary Blood - Venous - Lab Draw NO GROWTH AFTER 2 DAYS Anaerobic Blood Culture - Preliminary NO GROWTH AFTER 2 DAYS 04/07/18 05:05 Aerobic Blood Culture - Preliminary Blood - Venous - Lab Draw NO GROWTH AFTER 1 DAY Anaerobic Blood Culture - Preliminary NO GROWTH AFTER 1 DAY 04/07/18 05:10 Aerobic Blood Culture - Preliminary Blood - Venous NO GROWTH AFTER 1 DAY Anaerobic Blood Culture - Preliminary NO GROWTH AFTER 1 DAY Med Orders - Current: Current Medications Acetaminophen (Tylenol) 650 mg PO Q4H PRN PRN Reason: Pain (Mild 1-3)/fever Hydrocodone Bitart/Acetaminophen ([place] 325-5 Mg) 1 tab PO Q4H PRN PRN Reason: Pain (moderate 4-6) Albuterol (Proventil Neb Soln) 2.5 mg NEB Q2H PRN PRN Reason: Shortness Of Breath/wheezing Albuterol/Ipratropium (Duoneb 3.0-0.5 Mg/3 Ml) 3 ml NEB Q4H PRN PRN Reason: Shortness Of Breath/wheezing Amoxicillin/Clavulanate Potassium (Augmentin 875 Mg/125 Mg) 1 tab PO BID [facility] Aspirin (Halfprin) 81 mg PO DAILY [facility] Last Admin: 04/08/18 09:15 Dose: 81 mg Benazepril HCl (Lotensin) 20 mg PO DAILY [facility] Last Admin: 04/06/18 08:12 Dose: 20 mg Bisacodyl (Dulcolax) 5 mg PO DAILY PRN PRN Reason: Constipation Bumetanide (Bumex) 1 mg PO BID [facility] Docusate Sodium (Colace) 100 mg PO BID PRN PRN Reason: Constipation Enoxaparin Sodium (Lovenox) 40 mg SUBCUT DAILY [facility] Last Admin: 04/08/18 09:14 Dose: 40 mg Hydralazine HCl (Apresoline) 10 mg IVPUSH Q4H PRN PRN Reason: Hypertension Last Admin: 04/06/18 06:35 Dose: 10 mg Promethazine HCl 6.25 mg/ (Sodium Chloride) 50.25 mls @ 100 mls/hr IV Q6H PRN PRN Reason: Nausea/Vomiting Dobutamine HCl/Dextrose (Dobutamine In D5w 250 Mg/250 Ml) 250 mg in 250 mls @ 14.631 mls/hr IV TITRATE TANI; Protocol Magnesium Hydroxide (Milk Of Magnesia) 30 ml PO Q12H PRN PRN Reason: Constipation Metoprolol Tartrate (Lopressor) 5 mg IVPUSH Q4H PRN PRN Reason: Tachycardia Last Admin: 04/07/18 16:25 Dose: 5 mg Morphine Sulfate (Morphine) 0.5 mg IVPUSH Q4H PRN PRN Reason: Dyspnea Pantoprazole Sodium (Protonix) 40 mg PO DAILY [facility] Last Admin: 04/08/18 09:14 Dose: 40 mg Polyethylene Glycol (Miralax) 17 gm PO DAILY PRN PRN Reason: Constipation Potassium Chloride (Pharmacy To Dose - Potassium Replacement) 1 dose .XX ASDIRECTED [facility] Promethazine HCl (Phenergan) 25 mg PO Q6H PRN PRN Reason: Nausea/Vomiting Senna/Docusate Sodium (Senna Plus) 1 tab PO BID PRN PRN Reason: Constipation Spironolactone (Aldactone) 25 mg PO DAILY [facility] Last Admin: 04/06/18 08:12 Dose: 25 mg Tamsulosin HCl (Flomax) 0.4 mg PO BEDTIME [facility] Last Admin: 04/07/18 20:59 Dose: 0.4 mg Temazepam (Restoril) 7.5 mg PO BEDTIME PRN PRN Reason: Sleep Last Admin: 04/07/18 20:58 Dose: 7.5 mg Discontinued Medications Bumetanide (Bumex) 0.5 mg IVPUSH BID [facility] Last Admin: 04/08/18 09:12 Dose: 0.5 mg Furosemide (Lasix) 60 mg IVPUSH NOW ONE Stop: 04/05/18 13:05 Last Admin: 04/05/18 13:20 Dose: 60 mg Furosemide (Lasix) 40 mg IVPUSH DAILY [facility] Vancomycin HCl 1 gm/Vancomycin HCl 500 mg/ Sodium Chloride 500 mls @ 333.025 mls/hr IV Q12H [facility] Last Admin: 04/07/18 20:28 Dose: Not Given Furosemide 100 mg/ Sodium (Chloride) 100 mls @ 1.5 mls/hr IV TITRATE [facility]; Protocol Last Infusion: 04/06/18 10:26 Dose: 2.5 mls/hr Furosemide 100 mg/ Sodium (Chloride) 100 mls @ 2.5 mls/hr IV TITRATE [facility] Vancomycin HCl 1 gm/Vancomycin HCl 500 mg/ Sodium Chloride 500 mls @ 333.025 mls/hr IV Q18H [facility] Last Admin: 04/08/18 02:47 Dose: 333.025 mls/hr Morphine Sulfate (Morphine) 2 mg IVPUSH Q2H PRN PRN Reason: Pain (severe 7-10) Stop: 04/06/18 17:15 Morphine Sulfate (Morphine) 0.5 mg IVPUSH ONETIME ONE Stop: 04/06/18 15:24 Last Admin: 04/06/18 15:37 Dose: 0.5 mg Pantoprazole Sodium (Protonix Iv) 40 mg IVPUSH DAILY [facility] Last Admin: 04/06/18 08:14 Dose: 40 mg Potassium Chloride (Klor-Con M20) 40 meq PO ONETIME ONE Stop: 04/05/18 14:11 Last Admin: 04/05/18 15:20 Dose: 40 meq Potassium Chloride (Klor-Con M20) 40 meq PO Q4H [facility] Stop: 04/06/18 18:46 Last Admin: 04/06/18 18:11 Dose: 40 meq Vancomycin HCl (Pharmacy To Dose - Vancomycin) 0 dose .XX ASDIRECTED PRN PRN Reason: RX TO DOSE VANCOMYCIN - Exam Quality Assessment: DVT Prophylaxis. No: Supplemental Oxygen General: Alert, Oriented, Cooperative, No Acute Distress HEENT: Pupils Equal, Pupils Reactive, EOMI, Mucous Membr. Moist/[place] Neck: Supple Lungs: Normal Respiratory Effort, Crackles Cardiovascular: Regular Rate, Regular Rhythm GI/Abdominal Exam: Normal Bowel Sounds, Soft, Non-Tender, No Organomegaly, No Abnormal Bruit, No Mass, Pelvis Stable, Distended (Male) Exam: Deferred Back Exam: Normal Inspection, Full Range of Motion Extremities: Normal Range of Motion, Non-Tender, Normal Capillary Refill, Pedal Edema (2+ bilaterally), Redness (improving), Other (bilateral lower leg lesions , pustules- improving). No: Increased Warmth Peripheral Pulses: 1+: Posterior Tibial (L), Posterior Tibial (R), Dorsalis Pedis (L), Dorsalis Pedis (R) Skin: Warm, Dry, Intact, Rash (bilateral lower legs- improving) Wound/Incisions: Healing Well, Dressing Dry and Intact, Erythema Improving Neurological: No New Focal Deficit, Cranial Nerves Intact (grossly) Psy/Mental Status: Alert, Normal Affect, Normal Mood - Problem List & Annotations (1) CHF exacerbation SNOMED Code(s): 63287931 Code(s): I50.9 - HEART FAILURE, UNSPECIFIED Status: Acute Priority: High Current Visit: Yes Qualifiers: Heart failure type: unspecified Qualified Code(s): I50.9 - Heart failure, unspecified (2) Cellulitis SNOMED Code(s): 062300245 Code(s): L03.90 - CELLULITIS, UNSPECIFIED Status: Acute Priority: High Current Visit: Yes Qualifiers: Site of cellulitis: extremity Site of cellulitis of extremity: lower extremity Laterality: unspecified laterality Qualified Code(s): L03.119 - Cellulitis of unspecified part of limb (3) Hypoxia SNOMED Code(s): 069001788 Code(s): R09.02 - HYPOXEMIA Status: Acute Priority: High Current Visit : Yes (4) Obesity (BMI 30-39.9) SNOMED Code(s): 255690349, 020567688 Code(s): E66.9 - OBESITY, UNSPECIFIED Status: Chronic Priority: Low Current Visit: Yes (5) Urinary retention SNOMED Code(s): 706887772 Code(s): R33.9 - RETENTION OF URINE, UNSPECIFIED Status: Acute Priority: High Current Visit: Yes - Problem List Review Problem List Initiated/Reviewed/Updated: Yes - My Orders Last 24 Hours: My Active Orders 04/07/18 21:00 Tamsulosin [Flomax] 0.4 mg PO BEDTIME 04/08/18 10:46 Urinary Catheter Removal [RC] 1100 04/08/18 10:55 Consult to Continuous Process [employer] [CONS] Routine 04/08/18 11:00 Amoxicillin/Clavulanate K [Augmentin 875 MG/125 MG] 1 tab PO BID - Plan Plan:: I/P: Acute: CHF exacerbation, Improving -Acute on Chronic -Risk factor: Stopped taking Coreg on Thursday -SOB, Dyspnea, Orthopnea, Pedal edema, BiPAP needed to maintain O2>92% --> NO LONGER ON BiPAP -Respiratory Alkalosis in ED -BNP 8209-->83262-->8256-->5369 -CXR: pulmonary congestion -EKG: Sinus tachy with single PVC, Wide QRS (suspected old anterior septal IA ) -ECHO--> LVEF <20%, Grade III restrictive LV diastolic filling -Lasix 60 and KCl 40 given in ED -Continue IV Lasix, potassium replacement as needed--> D/C Lasix drip, start Bumex BID -Titrate O2 as needed to maintain >92% --> No longer on nasal cannula -Low sodium diet, Fluid restriction -Monitor Cellulitis, bilateral lower extremities, improving -Risk factor: h/o staph infection, lower extremity edema 2/2 CHF -Erythematous rashes with weeping pustules, bilateral -Hot to the touch on exam--> improving -Fever of 100.7-->99.8-->98 -Continue IV Vanco 500mg -Negative for MRSA -Culture wound--> Staph aureus and beta strep group A -Sepsis work up -Wound Care -Monitor Bacteremia, Improving -Most likely 2/2 Cellulitis -Blood culture--> Beta Strep Group A -Repeat Blood culture--> negative -Continue IV Vanco--> D/C start Augmentin PO today -WBC 34.01-->31.55-->20.72-->11.98 -Lactic Acid 2.5-->1.6, CRP 16.6-->15.1-->7 -Monitor Acute Renal Failure -Most likely 2/2 above -eGFR 40-->35.75-->40-->46 -BUN 28-->35-->41-->42, Cr 1.7-->1.9-->1.7-->1.5 -Monitor Urinary Retention and Frequency -Acute on Chronic -Has decided not to have a prostate exam, does not want to f/u with urology -[place] Catheter--> D/C today, have bedside urinal -Flomax started Abdominal Distension -Most likely 2/2 above -Pt states doesn't feel like weight gain, slow onset -AST/ALT normal range, no h/o ETOH abuse -Pt is overweight; BMI 38.6 -Denies constipation -CT abdomen/pelvis--> no ascites -F/U with PCP Chronic: HTN--> Continue at home meds, hydralazine PRN HLD Obesity Plan: ICU--> transfer to med surg Contact Precautions He remains stable and continues to improve clinically Other orders as indicated above Routine AM labs CM for discharge planning PT/OT/RT DVT Prophylaxis: Lovenox GI Prophylaxis: Protonix Ambulated as tolerated Code Status: DNR/DNI/Comfort measures; PCP: Dr. Gerard Page Most likely D/C tomorrow pending clinical disposition
[2018-04-08] MEDS: Amoxicillin/Clavulanate K 875-125 MG Tab PO SCH ×2 (11:15→21:13)
[2018-04-08] MEDS: Acetaminophen 325 MG Tab PO PRN ×2 (16:28→21:14)
[2018-04-08] MEDS: Bumetanide 1 MG Tab PO SCH (21:13)
[2018-04-08] MEDS: Tamsulosin 0.4 MG Cap.ER PO SCH (21:14)
[2018-04-08] MEDS: Temazepam 7.5 MG Cap PO PRN (21:14)
[2018-04-09] MEDS: Acetaminophen 325 MG Tab PO PRN (06:08)
[2018-04-09] MEDS: Amoxicillin/Clavulanate K 875-125 MG Tab PO SCH (09:53)
[2018-04-09] MEDS: Pantoprazole 40 MG Tab.CR PO SCH (09:53)
[2018-04-09] MEDS: Enoxaparin 40 MG/0.4 ML Syringe SUBCUT SCH (09:54)
[2018-04-09] MEDS: Aspirin 81 MG Tab.EC PO SCH (09:54)
[2018-04-09] MEDS: Potassium Chloride 20 MEQ Tab.ER PO SCH ×2 (10:59→14:58)
[2018-04-09] MEDS: Bumetanide 1 MG Tab PO SCH (11:01)
[2018-04-09] MEDS ORDERED: Bumetanide 1 MG Tab PO ONE (12:21)
--- NOTE | 2018-04-09 13:46 | PCM.DCSUM1 ---
Discharge Summary - Hospital Course HPI Initial Comments: 72-year-old male presents emergency room with shortness of breath. Shortness of breath is been getting worse over the last 5-6 days. The patient saw his hat cleaner earlier this week restarted his Coreg the patient took it for a few days started on but discontinued it on Thursday because he thought it was making the shortness of breath worse. The patient does not have associated chest pain with this however the last couple nights she's been sleeping sitting up because he cannot lay back. Patient has significant lower extremity edema. He denies much of a cough. - Discharge Data Discharge Date: 04/09/18 (ADMIT 04/05/18) Discharge Disposition: Home, Self-Care 01 Condition: Good - Discharge Diagnosis/Problem(s) (1) CHF exacerbation SNOMED Code(s): 31530877 ICD Code: I50.9 - HEART FAILURE, UNSPECIFIED Status: Acute Priority: High Current Visit: Yes Qualifiers: Heart failure type: unspecified Qualified Code(s): I50.9 - Heart failure, unspecified (2) Cellulitis SNOMED Code(s): 019224745 ICD Code: L03.90 - CELLULITIS, UNSPECIFIED Status: Acute Priority: High Current Visit: Yes Qualifiers: Site of cellulitis: extremity Site of cellulitis of extremity: lower extremity Laterality: unspecified laterality Qualified Code(s): L03.119 - Cellulitis of unspecified part of limb (3) Hypoxia SNOMED Code(s): 906864963 ICD Code: R09.02 - HYPOXEMIA Status: Acute Priority: High Current Visit : Yes (4) Obesity (BMI 30-39.9) SNOMED Code(s): 910039450, 046942878 ICD Code: E66.9 - OBESITY, UNSPECIFIED Status: Chronic Priority: Low Current Visit: Yes (5) Urinary retention SNOMED Code(s): 985846877 ICD Code: R33.9 - RETENTION OF URINE, UNSPECIFIED Status: Acute Priority : High Current Visit: Yes - Patient Summary/Data Operative Procedure(s) Performed: none Complications: none Consults: Consultations 04/05/18 17:22 Consult to Operations Accountant [CONS] Routine 04/05/18 17:23 Consult to Case Management [CONS] Routine Consult to Respiratory Therapy [Respiratory Care Assess and Treatment] [CONS] Routine Consult to Spiritual Care [CONS] Routine OT Evaluation and Treatment [CONS] Routine PT Evaluation and Treatment [CONS] Routine 04/06/18 17:03 Consult to Physical Therapy [PT Evaluation and Treatment] [CONS] Routine Labs Pending at D/C: none Recommended Follow-up Testing/Procedures: Follow up with your Primary Care Doctor, Dr. Page, within 7 days: -Discuss options for care, including Hospice/Comfort Care -Check potassium, discuss increase of Bumex dose at home Follow up with your Certified Travel Counselor in 7-10 days Planned Operative Procedure(s) after DC: none Hospital Course: I/P: Acute: CHF exacerbation, Improving -Acute on Chronic -Risk factor: Stopped taking Coreg on Thursday -SOB, Dyspnea, Orthopnea, Pedal edema, BiPAP needed to maintain O2>92% --> NO LONGER ON BiPAP -Respiratory Alkalosis in ED -BNP 8209-->70561-->8256-->5369-->6643 -CXR: pulmonary congestion -Repeat CXR: improving congestion -EKG: Sinus tachy with single PVC, Wide QRS (suspected old anterior septal [place] ) -ECHO--> LVEF <20%, Grade III restrictive LV diastolic filling -Lasix 60 and KCl 40 given in ED -Continue IV Lasix, potassium replacement as needed--> D/C Lasix drip, start Bumex BID -Titrate O2 as needed to maintain >92% --> No longer on nasal cannula -Low sodium diet, Fluid restriction -Monitor Cellulitis, bilateral lower extremities, improving -Acute on chronic -Risk factor: h/o staph infection, lower extremity edema 2/2 CHF -Erythematous rashes with weeping pustules, bilateral -Hot to the touch on exam--> improving -Fever of 100.7-->99.8-->98 -Continue IV Vanco 500mg -Negative for MRSA -Culture wound--> Staph aureus and beta strep group A -Sepsis work up -Wound Care -Monitor Acute Renal Failure -Most likely 2/2 above -Unsure if CKD III, have nothing to compare to -eGFR 40-->35.75-->40-->46 -BUN 28-->35-->42-->37, Cr 1.7-->1.5 -Monitor Urinary Retention and Frequency -Acute on Chronic -Has decided not to have a prostate exam, does not want to f/u with urology -Locke Catheter--> D/C today, have bedside urinal -Flomax started Abdominal Distension -Most likely 2/2 above -Pt states doesn't feel like weight gain, slow onset -AST/ALT normal range, no h/o ETOH abuse -Pt is overweight; BMI 38.6 -Denies constipation -CT abdomen/pelvis--> no ascites -F/U with PCP Resolved: Bacteremia -Most likely 2/2 Cellulitis -Blood culture--> Beta Strep Group A -Repeat Blood culture--> negative -Continue IV Vanco--> D/C start Augmentin PO today -WBC 34.01-->31.55-->20.72-->11.98-->10.22 -Lactic Acid 2.5-->1.6, CRP 16.6-->15.1-->7-->4.4 -Monitor Chronic: HTN--> Continue at home meds, hydralazine PRN HLD Obesity Plan: ICU--> transfer to med surg Contact Precautions He remains stable and continues to improve clinically Other orders as indicated above Routine AM labs CM for discharge planning PT/OT/RT DVT Prophylaxis: Lovenox GI Prophylaxis: Protonix Ambulated as tolerated Code Status: DNR/DNI/Comfort measures; PCP: Dr. Gerard Page D/C home today Alon has recovered well after being admitted for CHF exacerbation. He had multiple tests done. Repeat CXR shows improvement regarding CHF. Clinically he is doing well and is no longer on oxygen but is still short of breath with exertion. His pedal edema has slightly increased since taking him off of the IV Lasix and starting his home dose of Bumex, but is stable. The swelling is bothering him, so I have recommended he increase the dose to 2 tablets in the morning and 1 tablet in the afternoon. I recommended he check his blood pressure three times per day with this increase of dose and to back off or stop his other HTN medications if <90/65. He should follow up with his PCP regarding this regimen, whether they'd like to keep it or advance it as needed. He should also have his Potassium checked with this increased dose at his next appointment. He should remain on a low sodium diet with fluid restriction. He also had an ECHO done here and was found to have a LVEF of <20% and Grade III restrictive LV diastolic filling. It is suggested he follow up with his Certified Travel Counselor. He was also found to be septic with an acute infection of both of his lower legs. He was positive for Staph aureus and beta strep group A in his leg wounds/ cellulitis, and was found to have Beta Strep Group A bacteremia. The labs are now trending down. He has chronic cellulitis/wound in the legs and should follow up with his PCP. He will be sent home on 10 days Augmentin for completion of Acute cellulitis and bacteremia treatment and he has been given wound care instructions. We also did a CT of his abdomen because of his complaint of abdominal distension - no ascites was found. Finally, he had some urinary retention here but did not want to have a prostate exam and is not interested in following up with urology. We started him on Tamsulin- He should get a refill for Tamsulin from his PCP in the future. He was discharged home on Augmentin x10 days, Florastor x20 days, and Tamsulin for urinary retention. He will be discharged home today. *We discussed that with these multiple issues that need aggressive treatment that he may want to consider Hospice/Comfort Care. He is open to this idea. I have discussed with Dr. Page and will have him follow up within the week to discuss his options. - Patient Instructions Diet: Heart Healthy Diet, Low Sodium Activity: As Tolerated Driving: Do Not Drive Showering/Bathing: May Shower Wound/Incision Care: Keep Operative Site/Wound Site Clean and Dry, Change Dressing Daily Notify Provider of: Fever, Increased Pain, Swelling and Redness, Drainage, Nausea and/or Vomiting Other/Special Instructions: Return to ED if increased shortness of breath - Discharge Plan Prescriptions/Med Rec: Amoxicillin/Clavulanate K [Augmentin 875-125 MG] 1 tab PO BID 10 Days #20 tablet Saccharomyces Boulardii [Florastor] 250 mg PO BID #40 cap Tamsulosin [Flomax] 0.4 mg PO BEDTIME #30 cap.er Home Medications: Home Meds Aspirin [Halfprin] 81 mg PO DAILY 09/23/17 [History] Benazepril HCl [Lotensin] 20 mg PO DAILY 09/23/17 [History] Spironolactone [Aldactone] 25 mg PO DAILY 04/05/18 [History] Amoxicillin/Clavulanate K [Augmentin 875-125 MG] 1 tab PO BID 10 Days #20 tablet 04/09/18 [Rx] Bumetanide [Bumex] 1 mg PO BIDDIURETIC tablet 04/09/18 [Rx] Saccharomyces Boulardii [Florastor] 250 mg PO BID #40 cap 04/09/18 [Rx] Tamsulosin [Flomax] 0.4 mg PO BEDTIME #30 cap.er 04/09/18 [Rx] Patient Handouts: Antibiotic Medicine, Adult, [id number], Cellulitis, Adult, [id number], Heart Failure, [id number], Acute Urinary Retention, Male, Easy- to-Read Referrals: Gerard Page MD [Primary Care Provider] - 04/16/18 3:45 pm (Please see Dr. Page on April 16 @ 3:45pm. Be sure to have Dr. Page give orders for your potassium to be checked that day. ) - Discharge Summary/Plan Comment DC Time >30 min.: Yes (40) - General Info Date of Service: 04/09/18 Admission Dx/Problem (Free Text: CHF Subjective Update: In to see Alon today. He is sitting up in bed visiting with his son. Overall he is doing well, states he is feeling better but his legs still feel swollen and painful. He continues to have dyspnea on exertion. He is no longer on oxygen. RT consulted and does not recommend O2 at home. His legs are looking better. He says the Flomax has helped with his retention. We discussed that he will be D/C'd today, as he has responded well to treatment. He has been sleeping well. Good appetite. Ambulating as tolerated. Incentive Spirometry. Pain is controlled. No Fever, chills, chest pain, nausea, vomiting, diarrhea. No concerns from nursing. Will D/C home today. I also discussed the option of hospice with him, as he does not want to move forward with aggressive treatment for his LVEF of <20% and other chronic conditions. He is open to the idea. I have contacted his PCP, Dr. Rathgeber, and he would like to wait to see him in clinic before making the decision to start Hospice care. Functional Status: Reports: Pain Controlled, Tolerating Diet, Ambulating, Urinating - Review of Systems General: Reports: No Symptoms. Denies: Fever, Chills HEENT: Reports: No Symptoms Pulmonary: Reports: Shortness of Breath (on exertion, improved). Denies: Cough , Sputum Cardiovascular: Reports: Dyspnea on Exertion (improved), Orthopnea (improved), Edema (2+ bilaterally). Denies: Chest Pain, Palpitations, Lightheadedness Gastrointestinal: Reports: No Symptoms. Denies: Abdominal Pain, Diarrhea, Nausea, Vomiting Genitourinary: Reports: No Symptoms. Denies: Dysuria, Frequency, Burning, Pain , Retention (improved with Flomax) Musculoskeletal: Reports: No Symptoms Skin: Reports: No Symptoms Neurological: Reports: No Symptoms Psychiatric: Reports: No Symptoms - Patient Data Vitals - Most Recent: Last Vital Signs Temp 98.8 F 04/09/18 12:27 Pulse 103 H 04/09/18 12:27 Resp 20 04/09/18 12:27 BP 122/82 04/09/18 12:27 Pulse Ox 97 04/09/18 12:27 Weight - Most Recent: 266 lb 14.4 oz I&O - Last 24 hours: Intake & Output 04/08/18 04/09/18 04/09/18 22:59 06:59 14:59 Intake Total 360 400 300 Balance 360 400 300 Lab Results - Last 24 hrs: Laboratory Results - last 24 hr 04/09/18 04/09/18 04/09/18 Range/Units 06:14 06:14 06:14 WBC 10.22 H (4.23-9.07) K/mm3 RBC 4.77 (4.63-6.08) M/mm3 Hgb 12.8 L (13.7-17.5) gm/L Hct 41.0 (40.1-51.0) % MCV 86.0 (79.0-92.2) fl MCH 26.8 (25.7-32.2) pg MCHC 31.2 L (32.2-35.5) g/dl RDW Std Deviation 48.8 H (35.1-43.9) fL Plt Count 171 (163-337) K/mm3 MPV 13.1 H (9.4-12.3) fl Neut % (Auto) 73.1 H (34.0-67.9) % Lymph % (Auto) 15.1 L (21.8-53.1) % [place] % (Auto) 10.4 (5.3-12.2) % Eos % (Auto) 0.6 L (0.8-7.0) Baso % (Auto) 0.5 (0.1-1.2) % Neut # (Auto) 7.48 H (1.78-5.38) K/mm3 Lymph # (Auto) 1.54 (1.32-3.57) K/mm3 [place] # (Auto) 1.06 H (0.30-0.82) K/mm3 Eos # (Auto) 0.06 (0.04-0.54) K/mm3 Baso # (Auto) 0.05 (0.01-0.08) K/mm3 Sodium 142 (136-145) mEq/L Potassium 3.5 (3.5-5.1) mEq/L Chloride 106 (98-107) mEq/L Carbon Dioxide 30 (21-32) mEq/L Anion Gap 9.5 (5-15) BUN 37 H (7-18) mg/dL Creatinine 1.5 H (0.7-1.3) mg/dL Est Cr Clr Drug Dosing 45.29 mL/min Estimated GFR (MDRD) 46 (>60) mL/min BUN/Creatinine Ratio 24.7 H (14-18) Glucose 107 (83-115) mg/dL Calcium 8.7 (8.5-10.1) mg/dL Magnesium 2.1 (1.8-2.4) mg/dl C-Reactive Protein 4.4 H* (<1.0) mg/dL NT-Pro-B Natriuret Pep 6643 H (0-125) pg/mL RONAL Results - Last 24 hrs: Microbiology 04/07/18 05:05 Aerobic Blood Culture - Preliminary Blood - Venous - Lab Draw NO GROWTH AFTER 2 DAYS Anaerobic Blood Culture - Preliminary NO GROWTH AFTER 2 DAYS 04/07/18 05:10 Aerobic Blood Culture - Preliminary Blood - Venous NO GROWTH AFTER 2 DAYS Anaerobic Blood Culture - Preliminary NO GROWTH AFTER 2 DAYS 04/05/18 18:48 Aerobic Blood Culture - Preliminary Blood - Venous - Lab Draw NO GROWTH AFTER 3 DAYS Anaerobic Blood Culture - Preliminary NO GROWTH AFTER 3 DAYS 04/05/18 18:43 Aerobic Blood Culture - Final Blood - Venous Beta Streptococcus Group A Anaerobic Blood Culture - Preliminary NO GROWTH AFTER 3 DAYS 04/06/18 00:07 Wound Culture - Final Leg, Unspecified Beta Streptococcus Group A Staphylococcus Aureus Med Orders - Current: Current Medications Acetaminophen (Tylenol) 650 mg PO Q4H PRN PRN Reason: Pain (Mild 1-3)/fever Last Admin: 04/09/18 06:08 Dose: 650 mg Hydrocodone Bitart/Acetaminophen ([place] 325-5 Mg) 1 tab PO Q4H PRN PRN Reason: Pain (moderate 4-6) Albuterol (Proventil Neb Soln) 2.5 mg NEB Q2H PRN PRN Reason: Shortness Of Breath/wheezing Albuterol/Ipratropium (Duoneb 3.0-0.5 Mg/3 Ml) 3 ml NEB Q4H PRN PRN Reason: Shortness Of Breath/wheezing Amoxicillin/Clavulanate Potassium (Augmentin 875 Mg/125 Mg) 1 tab PO BID [facility] Last Admin: 04/09/18 09:53 Dose: 1 tab Aspirin (Halfprin) 81 mg PO DAILY [facility] Last Admin: 04/09/18 09:54 Dose: 81 mg Benazepril HCl (Lotensin) 20 mg PO DAILY [facility] Last Admin: 04/06/18 08:12 Dose: 20 mg Bisacodyl (Dulcolax) 5 mg PO DAILY PRN PRN Reason: Constipation Bumetanide (Bumex) 1 mg PO BIDDIURETIC [facility] Docusate Sodium (Colace) 100 mg PO BID PRN PRN Reason: Constipation Enoxaparin Sodium (Lovenox) 40 mg SUBCUT DAILY [facility] Last Admin: 04/09/18 09:54 Dose: 40 mg Hydralazine HCl (Apresoline) 10 mg IVPUSH Q4H PRN PRN Reason: Hypertension Last Admin: 04/06/18 06:35 Dose: 10 mg Promethazine HCl 6.25 mg/ (Sodium Chloride) 50.25 mls @ 100 mls/hr IV Q6H PRN PRN Reason: Nausea/Vomiting Magnesium Hydroxide (Milk Of Magnesia) 30 ml PO Q12H PRN PRN Reason: Constipation Metoprolol Tartrate (Lopressor) 5 mg IVPUSH Q4H PRN PRN Reason: Tachycardia Last Admin: 04/07/18 16:25 Dose: 5 mg Morphine Sulfate (Morphine) 0.5 mg IVPUSH Q4H PRN PRN Reason: Dyspnea Pantoprazole Sodium (Protonix) 40 mg PO DAILY [facility] Last Admin: 04/09/18 09:53 Dose: 40 mg Polyethylene Glycol (Miralax) 17 gm PO DAILY PRN PRN Reason: Constipation Potassium Chloride (Pharmacy To Dose - Potassium Replacement) 1 dose .XX ASDIRECTED [facility] Potassium Chloride (Klor-Con M20) 40 meq PO Q4H [facility] Stop: 04/09/18 14:01 Last Admin: 04/09/18 10:59 Dose: 40 meq Promethazine HCl (Phenergan) 25 mg PO Q6H PRN PRN Reason: Nausea/Vomiting Senna/Docusate Sodium (Senna Plus) 1 tab PO BID PRN PRN Reason: Constipation Spironolactone (Aldactone) 25 mg PO DAILY [facility] Last Admin: 04/06/18 08:12 Dose: 25 mg Tamsulosin HCl (Flomax) 0.4 mg PO BEDTIME [facility] Last Admin: 04/08/18 21:14 Dose: 0.4 mg Temazepam (Restoril) 7.5 mg PO BEDTIME PRN PRN Reason: Sleep Last Admin: 04/08/18 21:14 Dose: 7.5 mg Discontinued Medications Bumetanide (Bumex) 0.5 mg IVPUSH BID [facility] Last Admin: 04/08/18 09:12 Dose: 0.5 mg Bumetanide (Bumex) 1 mg PO BID [facility] Last Admin: 04/09/18 11:01 Dose: 1 mg Bumetanide (Bumex) 1 mg PO ONETIME ONE Stop: 04/09/18 12:22 Last Admin: 04/09/18 13:20 Dose: 1 mg Furosemide (Lasix) 60 mg IVPUSH NOW ONE Stop: 04/05/18 13:05 Last Admin: 04/05/18 13:20 Dose: 60 mg Furosemide (Lasix) 40 mg IVPUSH DAILY [facility] Vancomycin HCl 1 gm/Vancomycin HCl 500 mg/ Sodium Chloride 500 mls @ 333.025 mls/hr IV Q12H [facility] Last Admin: 04/07/18 20:28 Dose: Not Given Furosemide 100 mg/ Sodium (Chloride) 100 mls @ 1.5 mls/hr IV TITRATE TANI; Protocol Last Infusion: 04/06/18 10:26 Dose: 2.5 mls/hr Furosemide 100 mg/ Sodium (Chloride) 100 mls @ 2.5 mls/hr IV TITRATE TANI Dobutamine HCl/Dextrose (Dobutamine In D5w 250 Mg/250 Ml) 250 mg in 250 mls @ 14.631 mls/hr IV TITRATE TANI; Protocol Vancomycin HCl 1 gm/Vancomycin HCl 500 mg/ Sodium Chloride 500 mls @ 333.025 mls/hr IV Q18H [facility] Last Admin: 04/08/18 02:47 Dose: 333.025 mls/hr Morphine Sulfate (Morphine) 2 mg IVPUSH Q2H PRN PRN Reason: Pain (severe 7-10) Stop: 04/06/18 17:15 Morphine Sulfate (Morphine) 0.5 mg IVPUSH ONETIME ONE Stop: 04/06/18 15:24 Last Admin: 04/06/18 15:37 Dose: 0.5 mg Pantoprazole Sodium (Protonix Iv) 40 mg IVPUSH DAILY [facility] Last Admin: 04/06/18 08:14 Dose: 40 mg Potassium Chloride (Klor-Con M20) 40 meq PO ONETIME ONE Stop: 04/05/18 14:11 Last Admin: 04/05/18 15:20 Dose: 40 meq Potassium Chloride (Klor-Con M20) 40 meq PO Q4H [facility] Stop: 04/06/18 18:46 Last Admin: 04/06/18 18:11 Dose: 40 meq Vancomycin HCl (Pharmacy To Dose - Vancomycin) 0 dose .XX ASDIRECTED PRN PRN Reason: RX TO DOSE VANCOMYCIN - Exam Quality Assessment: Reports: DVT Prophylaxis. Denies: Supplemental Oxygen General: Reports: Alert, Oriented, Cooperative, No Acute Distress HEENT: Reports: Pupils Equal, Pupils Reactive, EOMI, Mucous Membr. Moist/[place] Neck: Reports: Supple Lungs: Reports: Normal Respiratory Effort, Crackles (improved) Cardiovascular: Reports: Regular Rate, Regular Rhythm GI/Abdominal Exam: Normal Bowel Sounds, Soft, Non-Tender, No Organomegaly, No Abnormal Bruit, No Mass, Pelvis Stable, Distended (Male) Exam: Deferred Rectal (Males) Exam: Deferred Back Exam: Reports: Normal Inspection, Full Range of Motion Extremities: Normal Range of Motion, Non-Tender, Normal Capillary Refill, Pedal Edema, Other (bilateral lower leg lesions, pustules- improving). No: Increased Warmth Skin: Reports: Warm, Dry, Intact Wound/Incisions: Reports: Healing Well, Dressing Dry and Intact, Erythema Improving (bilateral lower legs- improving) Neurological: Reports: No New Focal Deficit, Cranial Nerves Intact (grossly) Psy/Mental Status: Reports: Alert, Normal Affect, Normal Mood
[2018-04-09] MEDS ORDERED: Bumetanide 1 MG Tab PO SCH (14:00)
[2018-04-09] MEDS ORDERED: Pneumococcal 13-Valent Conjugate Vaccine 0.5 ML Syringe IM ONE (15:15)
== END 2018-04-09 15:50 | disposition home or self-care (01) | DRG 292 ==
LOC: JD.ED 12:28 → JD.ICU 18:25 → JD.MS 04-07 15:09
PROVIDERS: ADMIT Internal Medicine; ATTEND Internal Medicine
PROC: 5A09357 Assistance with Respiratory Ventilation, Less than 24 Consecutive Hours, Continuous Positive Airway Pressure (ICD-10-PCS; principal; 2018-04-05)
PROC: 039Y3ZZ Drainage of Upper Artery, Percutaneous Approach (ICD-10-PCS; 2018-04-05)
DX: I11.0 Hypertensive heart disease with heart failure (principal); I13.0 Hypertensive heart and chronic kidney disease with heart failure and stage 1 through stage 4 chronic kidney disease, or unspecified chronic kidney disease; I42.9 Cardiomyopathy, unspecified; E78.00 Pure hypercholesterolemia, unspecified; E87.3 Alkalosis; N17.9 Acute kidney failure, unspecified; L03.116 Cellulitis of left lower limb; L03.115 Cellulitis of right lower limb; R78.81 Bacteremia; I50.9 Heart failure, unspecified; R06.00 Dyspnea, unspecified; R06.01 Orthopnea; R06.82 Tachypnea, not elsewhere classified; R00.0 Tachycardia, unspecified; L98.2 Febrile neutrophilic dermatosis [Sweet]; R07.9 Chest pain, unspecified; R60.9 Edema, unspecified; R05 Cough; R06.02 Shortness of breath; J90 Pleural effusion, not elsewhere classified; E78.5 Hyperlipidemia, unspecified; R09.02 Hypoxemia; R33.9 Retention of urine, unspecified; R35.0 Frequency of micturition; B95.61 Methicillin susceptible Staphylococcus aureus infection as the cause of diseases classified elsewhere; N18.3 Chronic kidney disease, stage 3 (moderate); R14.0 Abdominal distension (gaseous); E66.9 Obesity, unspecified; Z68.38 Body mass index [BMI] 38.0-38.9, adult; Z91.14 Patient's other noncompliance with medication regimen; Z66 Do not resuscitate; Z87.891 Personal history of nicotine dependence; Z79.82 Long term (current) use of aspirin; Z79.899 Other long term (current) drug therapy; Z51.5 Encounter for palliative care; Z23 Encounter for immunization
CPT/HCPCS: 36415; 36600; 71045; 80053; 82803; 83880 ×2; 84484; 85007; 85027; 85610; 85730; 93005; 94660; 99285; A9270; J1940; 51702; 74176; 74176-26; 80048; 80202; 81001; 83605; 83735; 84132; 85025; 86140; 87040; 87070; 87077; 87181; 87184; 87186; 87641; 90670; 93010; 93306; 96374; 97116-GP; 97162-GP; 97165-GO; 97530-GP; 97597-GP; 99223; 99232; 99239; C9113; G0009; J0360; J1650; J2270; J3370; J3490; J7030; J7040